=== PATIENT | male | born 1945 | race Caucasian/White ===

== ENCOUNTER 2016-05-29 03:30 | Emergency (ER) | payer MEDICARE, BC ==
--- NOTE | 2016-05-29 03:50 | EDM.PDOC ---
ED HISTORY OF PRESENT ILLNESS - General Chief Complaint: Respiratory Problem Stated Complaint: POSS. PNEMONIA Time Seen by Provider: 05/29/16 03:50 Source of Information: Reports: Patient - History of Present Illness INITIAL COMMENTS - FREE TEXT/NARRATIVE: ough and SOB since yesterday. hx pneumonias in past and feels same. No fevers. Timing/Duration: Reports: Day(s): Severity: moderate Location, General: Reports: chest Quality: Denies: Ache, Pressure Associated Symptoms (General): Reports: cough, cough w sputum (yesterday yellow) - Related Data Allergies/ADRs: Allergies Allergy/AdvReac Type Severity Reaction Status Date / Time ibuprofen [From Advil] AdvReac Mild Nausea and Verified 05/29/16 03:37 Vomiting Home Meds: Home Meds Carvedilol 25 mg PO BID 05/09/13 [History] Lisinopril [Prinivil] 40 mg PO DAILY 05/09/13 [History] Simvastatin [Zocor] 80 mg PO DAILY 05/09/13 [History] Spironolactone [Aldactone] 100 mg PO DAILY 05/09/13 [History] Warfarin Sodium 5 mg PO DAILY 05/09/13 [History] Past Medical History HEENT History: Reports: None Cardiovascular History: Reports: Hypertension, Stents Respiratory History: Reports: None Gastrointestinal History: Reports: None Genitourinary History: Reports: None Musculoskeletal History: Reports: None Neurological History: Reports: None Psychiatric History: Reports: None Endocrine/Metabolic History: Reports: None Hematologic History: Reports: None Immunologic History: Reports: None Oncologic (Cancer) History: Reports: None Dermatologic History: Reports: None Social & Family History - Tobacco Use Smoking Status *Q: Never Smoker Second Hand Smoke Exposure: No - Caffeine Use Caffeine Use: Reports: Soda - Alcohol Use Days Per Week of Alcohol Use: 0 - Recreational Drug Use Recreational Drug Use: No Course - Vital Signs Last Recorded V/S: Last Vital Signs Temp 96.0 F 05/29/16 03:39 Pulse 78 05/29/16 03:39 Resp 18 05/29/16 03:39 BP 131/88 05/29/16 03:39 Pulse Ox 95 05/29/16 03:39 - Orders/Labs/Meds Orders: Active Orders 24 hr Category Date Time Status CXR [Chest 2V] [CR] Urgent Exams 05/29/16 03:47 Ordered B-TYPE NATRIURETIC PEPTIDE,BNP [CHEM] Stat Lab 05/29/16 03:47 Ordered CBC WITH AUTO DIFF [HEME] Stat Lab 05/29/16 03:47 Ordered COMPREHENSIVE METABOLIC PN,CMP [CHEM] Stat Lab 05/29/16 03:47 Ordered D-DIMER QUANTITATIVE [COAG] Stat Lab 05/29/16 03:47 Ordered INFLUENZA A+B AG SCREEN [RM] Stat Lab 05/29/16 03:48 Ordered INR,PT,PROTHROMBIN TIME [COAG] Stat Lab 05/29/16 03:47 Ordered LACTIC ACID [CHEM] Stat Lab 05/29/16 03:47 Ordered Departure - Departure Forms: ED Department Discharge - My Orders Last 24 Hours: My Active Orders 05/29/16 03:47 CXR [Chest 2V] [CR] Urgent B-TYPE NATRIURETIC PEPTIDE,BNP [CHEM] Stat CBC WITH AUTO DIFF [HEME] Stat COMPREHENSIVE METABOLIC PN,CMP [CHEM] Stat D-DIMER QUANTITATIVE [COAG] Stat INR,PT,PROTHROMBIN TIME [COAG] Stat LACTIC ACID [CHEM] Stat 05/29/16 03:48 INFLUENZA A+B AG SCREEN [RM] Stat - Assessment/Plan Last 24 Hours: My Active Orders 05/29/16 03:47 CXR [Chest 2V] [CR] Urgent B-TYPE NATRIURETIC PEPTIDE,BNP [CHEM] Stat CBC WITH AUTO DIFF [HEME] Stat COMPREHENSIVE METABOLIC PN,CMP [CHEM] Stat D-DIMER QUANTITATIVE [COAG] Stat INR,PT,PROTHROMBIN TIME [COAG] Stat LACTIC ACID [CHEM] Stat 05/29/16 03:48 INFLUENZA A+B AG SCREEN [RM] Stat
--- NOTE | 2016-05-29 04:10 | EDM.PDOC ---
ED HISTORY OF PRESENT ILLNESS - General Chief Complaint: Respiratory Problem Stated Complaint: POSS. PNEMONIA Time Seen by Provider: 05/29/16 03:40 Source of Information: Reports: Patient History Limitations: Reports: No limitations - History of Present Illness INITIAL COMMENTS - FREE TEXT/NARRATIVE: c/o cough and SOB since yesterday. Hx pneumonia in past and feels similar. Cough productive yesterday yellow phlegm Timing/Duration: Reports: Day(s): Severity: moderate Location, General: Reports: chest Quality: Denies: Pressure Associated Symptoms (General): Reports: cough, cough w sputum. Denies: chest pain - Related Data Allergies/ADRs: Allergies Allergy/AdvReac Type Severity Reaction Status Date / Time ibuprofen [From Advil] AdvReac Mild Nausea and Verified 05/29/16 03:37 Vomiting Home Meds: Home Meds Carvedilol 25 mg PO BID 05/09/13 [History] Lisinopril [Prinivil] 40 mg PO DAILY 05/09/13 [History] Simvastatin [Zocor] 80 mg PO DAILY 05/09/13 [History] Spironolactone [Aldactone] 100 mg PO DAILY 05/09/13 [History] Warfarin Sodium 5 mg PO DAILY 05/09/13 [History] Past Medical History HEENT History: Reports: None Cardiovascular History: Reports: Hypertension, Stents Respiratory History: Reports: None Gastrointestinal History: Reports: None Genitourinary History: Reports: None Musculoskeletal History: Reports: None Neurological History: Reports: None Psychiatric History: Reports: None Endocrine/Metabolic History: Reports: None Hematologic History: Reports: None Immunologic History: Reports: None Oncologic (Cancer) History: Reports: None Dermatologic History: Reports: None Social & Family History - Tobacco Use Smoking Status *Q: Never Smoker Second Hand Smoke Exposure: No - Caffeine Use Caffeine Use: Reports: Soda - Alcohol Use Days Per Week of Alcohol Use: 0 - Recreational Drug Use Recreational Drug Use: No ED ROS GENERAL - Review of Systems Review Of Systems: See Below Constitutional: Reports: malaise. Denies: fever HEENT: Reports: No symptoms Respiratory: Reports: cough, sputum Cardiovascular: Reports: No symptoms GI/Abdominal: Reports: No symptoms : Reports: no symptoms Musculoskeletal: Reports: no symptoms Skin: Reports: no symptoms Neurological: Reports: no symptoms ED EXAM, GENERAL - Physical Exam Exam: See Below Exam Limited By: No limitations General Appearance: alert, mild distress Eye Exam: bilateral eye: EOMI, PERRL Ears: normal external exam, normal TMs Nose: normal inspection Throat/Mouth: Normal inspection, Other (hoarse voice) Head: atraumatic, normocephalic Neck: normal inspection, full range of motion. No: lymphadenopathy (L), lymphadenopathy (R) Respiratory/Chest: no respiratory distress (talkative, full sentences), wheezing (coarse right mid to base). No: respiratory distress, retractions, prolonged expiration Cardiovascular: normal peripheral pulses, regular rate, rhythm GI/Abdominal: normal bowel sounds Back Exam: normal inspection Extremities: normal inspection, normal range of motion Neurological: alert, oriented, normal cognition Psychiatric: normal affect, normal mood Skin Exam: Warm, Dry, Intact Course - Vital Signs Last Recorded V/S: Last Vital Signs Temp 96.0 F 05/29/16 03:39 Pulse 78 05/29/16 03:39 Resp 18 05/29/16 03:39 BP 131/88 05/29/16 03:39 Pulse Ox 95 05/29/16 03:39 - Orders/Labs/Meds Orders: Active Orders 24 hr Category Date Time Status RT Aerosol Therapy [RC] ASDIRECTED Care 05/29/16 04:15 Active CXR [Chest 2V] [CR] Urgent Exams 05/29/16 03:47 Taken Doxycycline [Vibramycin] Med 05/29/16 05:00 Once 100 mg PO ONETIME ONE Labs: Laboratory Tests 05/29/16 05/29/16 05/29/16 Range/Units 04:00 04:00 04:00 WBC 6.1 (5.0-10.0) 10^3/uL RBC 5.03 (4.6-6.2) 10^6/uL Hgb 14.3 (14.0-18.0) g/dL Hct 43.9 (40.0-54.0) % MCV 87.3 (80-100) fL MCH 28.4 (27.0-34.0) pg MCHC 32.6 L (33.0-35.0) g/dL Plt Count 136 L (150-450) 10^3/uL Neut % (Auto) 51.6 (42.2-75.2) % Lymph % (Auto) 33.3 (20.5-50.1) % [place] % (Auto) 12.1 H (2-8) % Eos % (Auto) 2.5 (1.0-3.0) % Baso % (Auto) 0.5 (0.0-1.0) % PT 30.9 H (9.0-12.0) SEC INR 2.9 H (0.9-1.2) D-Dimer, Quantitative < 100 (0-400) ng/mL Sodium 135 (135-145) mmol/L Potassium 4.5 (3.6-5.0) mmol/L Chloride 103 (101-111) mmol/L Carbon Dioxide 29.0 (21.0-31.0) mmol/L Anion Gap 7.5 BUN 32 H (7-18) mg/dL Creatinine 1.5 H (0.6-1.3) mg/dL Est Cr Clr Drug Dosing 48.11 mL/min Estimated GFR (MDRD) 46 BUN/Creatinine Ratio 21.33 Glucose 109 H (74-105) mg/dL Lactic Acid (0.5-2.2) mmol/L Calcium 8.5 (8.4-10.2) mg/dl Total Bilirubin 0.5 (0.2-1.0) mg/dL AST 23 (10-42) IU/L ALT 25 (10-60) IU/L Alkaline Phosphatase 75 (42-121) IU/L B-Natriuretic Peptide 44 (0-100) pg/ml Total Protein 7.4 (6.7-8.2) g/dl Albumin 4.0 (3.2-5.5) g/dl Globulin 3.4 Albumin/Globulin Ratio 1.18 /03/17 Range/Units 04:00 WBC (5.0-10.0) 10^3/uL RBC (4.6-6.2) 10^6/uL Hgb (14.0-18.0) g/dL Hct (40.0-54.0) % MCV (80-100) fL MCH (27.0-34.0) pg MCHC (33.0-35.0) g/dL Plt Count (150-450) 10^3/uL Neut % (Auto) (42.2-75.2) % Lymph % (Auto) (20.5-50.1) % [place] % (Auto) (2-8) % Eos % (Auto) (1.0-3.0) % Baso % (Auto) (0.0-1.0) % PT (9.0-12.0) SEC INR (0.9-1.2) D-Dimer, Quantitative (0-400) ng/mL Sodium (135-145) mmol/L Potassium (3.6-5.0) mmol/L Chloride (101-111) mmol/L Carbon Dioxide (21.0-31.0) mmol/L Anion Gap BUN (7-18) mg/dL Creatinine (0.6-1.3) mg/dL Est Cr Clr Drug Dosing mL/min Estimated GFR (MDRD) BUN/Creatinine Ratio Glucose (74-105) mg/dL Lactic Acid 1.0 (0.5-2.2) mmol/L Calcium (8.4-10.2) mg/dl Total Bilirubin (0.2-1.0) mg/dL AST (10-42) IU/L ALT (10-60) IU/L Alkaline Phosphatase (42-121) IU/L B-Natriuretic Peptide (0-100) pg/ml Total Protein (6.7-8.2) g/dl Albumin (3.2-5.5) g/dl Globulin Albumin/Globulin Ratio Meds: Medications Discontinued Medications Generic Name Dose Route Start Last Admin Trade Name Freq PRN Reason Stop Dose Admin Albuterol/Ipratropium 3 ml 05/29/16 04:15 05/29/16 04:20 Duoneb 3.0-0.5 Mg/3 Ml NEB 05/29/16 04:16 3 ml ONETIME ONE Administration Benzonatate 200 mg 05/29/16 04:59 Tessalon Perles PO 05/29/16 05:00 ONETIME ONE Prednisone 20 mg 05/29/16 04:59 Prednisone PO 05/29/16 05:00 ONETIME ONE - Radiology Interpretation Free Text/Narrative:: No pneumonia , scarring right lung base Departure - Departure Time of Disposition: 05:02 Disposition: Home, Self-Care 01 Condition: fair Clinical Impression: Acute bronchitis Instructions: Upper Respiratory Infection, Adult, [id number] Forms: ED Department Discharge Additional Instructions: tessalon pearles 200mg one three times daily for cough #12 doxycycline 100mg twice daily for one week fluids recheck clinic wednesday , sooner if difficultly breathing Robitussin per label instruction as needed to loosen secretions - My Orders Last 24 Hours: My Active Orders 05/29/16 03:47 CXR [Chest 2V] [CR] Urgent 05/29/16 04:15 RT Aerosol Therapy [RC] ASDIRECTED 05/29/16 05:00 Doxycycline [Vibramycin] 100 mg PO ONETIME ONE - Assessment/Plan Last 24 Hours: My Active Orders 05/29/16 03:47 CXR [Chest 2V] [CR] Urgent 05/29/16 04:15 RT Aerosol Therapy [RC] ASDIRECTED 05/29/16 05:00 Doxycycline [Vibramycin] 100 mg PO ONETIME ONE
[2016-05-29] MEDS ORDERED: Albuterol/Ipratropium 3.0-0.5 MG/3 ML Neb Soln NEB ONE (04:15)
[2016-05-29] MEDS ORDERED: predniSONE 20 MG Tab PO ONE (04:59)
[2016-05-29] MEDS ORDERED: Benzonatate 100 MG Cap PO ONE (04:59)
[2016-05-29] MEDS ORDERED: Doxycycline 100 MG Cap PO ONE (05:00)
[2016-05-29 05:29] VITALS: BP 130/84
== END 2016-05-29 05:17 | disposition home or self-care (01) ==
LOC: DL.ED 03:30
DX: J20.9 Acute bronchitis, unspecified (principal); I10 Essential (primary) hypertension; Z88.6 Allergy status to analgesic agent; Z79.899 Other long term (current) drug therapy
CPT/HCPCS: 36415; 71020; 80053; 83605; 83880; 85025; 85379; 85610; 87804; 94640; 99284; A9270

== ENCOUNTER 2016-08-06 00:39 | Emergency (ER) | payer MEDICARE, BC ==
[2016-08-06 00:49] VITALS: BP 154/99
[2016-08-06] MEDS ORDERED: cefTRIAXone 1 GM, Lidocaine 1% 2.1 ML IM ONE ×2 (01:00)
[2016-08-06] MEDS ORDERED: Azithromycin 250 MG Tab PO ONE (01:00)
--- NOTE | 2016-08-06 01:09 | EDM.PDOC ---
ED HPI GENERAL MEDICAL PROBLEM - General Chief Complaint: Respiratory Problem Stated Complaint: COUGH, CHEST DISCOMFORT Time Seen by Provider: 08/06/16 00:55 Source of Information: Reports: Patient History Limitations: Reports: No limitations - History of Present Illness INITIAL COMMENTS - FREE TEXT/NARRATIVE: This 71 yo male patient reported to the ED with a 2 day history of chest congestion. The patient has a history of frequent bronchitis. Onset: sudden Onset Date: 08/04/16 Duration: Day(s): (2) Location: Reports: chest Quality: Reports: Dull Severity: moderate Improves with: Reports: Cold therapy Worsens with: Reports: None Associated Symptoms: Reports: cough Treatments [employer]: Reports: Other medication(s) - Related Data Home Meds: Home Meds Carvedilol 25 mg PO BID 05/09/13 [History] Lisinopril [Prinivil] 40 mg PO DAILY 05/09/13 [History] Simvastatin [Zocor] 80 mg PO DAILY 05/09/13 [History] Spironolactone [Aldactone] 100 mg PO DAILY 05/09/13 [History] Warfarin Sodium 5 mg PO DAILY 05/09/13 [History] Past Medical History HEENT History: Reports: None Cardiovascular History: Reports: Hypertension, Stents Respiratory History: Reports: None Gastrointestinal History: Reports: None Genitourinary History: Reports: None Musculoskeletal History: Reports: None Neurological History: Reports: None Psychiatric History: Reports: None Endocrine/Metabolic History: Reports: None Hematologic History: Reports: None Immunologic History: Reports: None Oncologic (Cancer) History: Reports: None Dermatologic History: Reports: None Social & Family History - Tobacco Use Smoking Status *Q: Unknown Ever Smoked Second Hand Smoke Exposure: No - Caffeine Use Caffeine Use: Reports: None - Alcohol Use Days Per Week of Alcohol Use: 0 - Recreational Drug Use Recreational Drug Use: No ED ROS GENERAL - Review of Systems Review Of Systems: ROS reveals no pertinent complaints other than HPI. ED EXAM, GENERAL - Physical Exam Exam: See Below Exam Limited By: No limitations General Appearance: alert, WD/WN, no apparent distress Eye Exam: bilateral eye: EOMI, normal inspection, PERRL Ears: normal external exam, normal canal, hearing grossly normal, normal TMs Nose: normal inspection, normal mucosa, no blood Throat/Mouth: Normal inspection, Normal lips, Normal teeth, Normal gums, Normal oropharynx, Normal voice, No airway compromise Head: atraumatic, normocephalic Neck: normal inspection, supple, non-tender, full range of motion Respiratory/Chest: no respiratory distress, chest non-tender, rhonchi (fine in bases) Cardiovascular: normal peripheral pulses, regular rate, rhythm, no edema, no gallop, no JVD, no murmur, no rub GI/Abdominal: Normal Bowel Sounds, Soft, Non-Tender, No Organomegaly, No Distention, No Abnormal Bruit, No Mass (Male) Exam: Deferred Rectal (Males) Exam: Deferred Back Exam: normal inspection, full range of motion, NT Extremities: normal inspection, normal range of motion, non-tender, normal capillary refill, no pedal edema Neurological: alert, oriented, CN II-XII intact, normal cognition, normal gait, normal reflexes, no motor/sensory deficits Psychiatric: normal affect, normal mood Skin Exam: Warm, Dry, Intact, Normal color, No rash Lymphatic: no adenopathy Course - Vital Signs Last Recorded V/S: Last Vital Signs Temp 35.9 C 08/06/16 00:46 Pulse 78 08/06/16 00:46 Resp 20 08/06/16 00:46 BP 154/99 H 08/06/16 00:46 Pulse Ox 94 L 08/06/16 00:46 - Orders/Labs/Meds Meds: Medications Discontinued Medications Generic Name Dose Route Start Last Admin Trade Name Tammy PRN Reason Stop Dose Admin Azithromycin 500 mg 08/06/16 01:00 Zithromax PO 08/06/16 01:01 ONETIME ONE Ceftriaxone Sodium 1 gm/ 0 gm 08/06/16 01:00 Lidocaine HCl 2.1 ml IM 08/06/16 01:01 ONETIME ONE Departure - Departure Time of Disposition: 01:11 Disposition: Home, Self-Care 01 Condition: fair Clinical Impression: Bronchitis - Discharge Information Instructions: Acute Bronchitis, [id number] Forms: ED Department Discharge Care Plan Goals: The patient was advised of the examination results during the visit. The patient was given an IM injection of Rocephin and an oral dose of Azithromycin while in the ED. The patient was discharged with a script for Azithromycin (250 mg) #4 to take 1 by mouth daily and Tesalon Pearles (200 mg) #30 to take 1 by mouth 3 times per day as needed. If the patient has any additional symptoms or concerns, the patient should follow-up with his primary care facility or return to the ED.
== END 2016-08-06 01:35 | disposition home or self-care (01) ==
LOC: DL.ED 00:39
DX: J40 Bronchitis, not specified as acute or chronic (principal); I10 Essential (primary) hypertension; Z79.01 Long term (current) use of anticoagulants; Z79.899 Other long term (current) drug therapy
CPT/HCPCS: 99283; A9270; J0696

== ENCOUNTER 2016-10-18 01:21 | Emergency (ER) | payer MEDICARE, BC, MEDICAID ==
[2016-10-18 01:27] VITALS: BP 117/76
[2016-10-18] MEDS ORDERED: cefTRIAXone 1 GM, Lidocaine 1% 2.1 ML IM ONE ×2 (01:43)
--- NOTE | 2016-10-18 01:47 | EDM.PDOC ---
ED HPI GENERAL MEDICAL PROBLEM - General Chief Complaint: Respiratory Problem Stated Complaint: POSSIBLE PNEUMONIA OR BRONCHITIS Time Seen by Provider: 10/18/16 01:44 Source of Information: Reports: Patient History Limitations: Reports: No Limitations - History of Present Illness INITIAL COMMENTS - FREE TEXT/NARRATIVE: gives recurrent h/o bronchitis and this feels just like it and the only thing that work are IM rocephin + z-yung. states steroids don't and nebs don't. 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, High Cholesterol, Hypertension, Stents Respiratory History: Reports: Bronchitis, Recurrent Gastrointestinal History: Reports: None Genitourinary History: Reports: None Musculoskeletal History: Reports: None Neurological History: Reports: None Psychiatric History: Reports: None Endocrine/Metabolic History: Reports: None Hematologic History: Reports: None Immunologic History: Reports: None Oncologic (Cancer) History: Reports: None Dermatologic History: Reports: None Social & Family History - Tobacco Use Smoking Status *Q: Never Smoker Second Hand Smoke Exposure: No - Caffeine Use Caffeine Use: Reports: None - Alcohol Use Days Per Week of Alcohol Use: 0 - Recreational Drug Use Recreational Drug Use: No ED ROS GENERAL - Review of Systems Review Of Systems: ROS reveals no pertinent complaints other than HPI. ED EXAM, GENERAL - Physical Exam Exam: See Below Exam Limited By: No Limitations General Appearance: Alert, WD/WN, No Apparent Distress, Other (episodic cough spasms) Ears: Hearing Grossly Normal Throat/Mouth: Normal Voice, No Airway Compromise Head: Atraumatic Neck: Non-Tender, Full Range of Motion Respiratory/Chest: No Respiratory Distress, No Accessory Muscle Use, Rhonchi, Wheezing. No: Decreased Breath Sounds, Crackles, Rales, Retractions, Splinting Cardiovascular: Regular Rate, Rhythm GI/Abdominal: Soft, Non-Tender Neurological: Alert, Oriented, Normal Cognition, Normal Gait, No Motor/Sensory Deficits Psychiatric: Normal Affect, Normal Mood Skin Exam: Warm, Dry Lymphatic: No Adenopathy Course - Vital Signs Last Recorded V/S: Last Vital Signs Temp 36.6 C 10/18/16 01:24 Pulse 78 10/18/16 01:24 Resp 18 10/18/16 01:24 BP 117/76 10/18/16 01:24 Pulse Ox 94 L 10/18/16 01:24 - Orders/Labs/Meds Orders: Active Orders 24 hr Category Date Time Status cefTRIAXone 1 GM,Lidocaine 1% 2.1 ML Med 10/18/16 01:43 Ordered cefTRIAXone [Rocephin] 1 gm Lidocaine 1% [Xylocaine-MPF 1%] 2.1 ml IM ONETIME Medication Orders Ceftriaxone Sodium 1 gm/ (Lidocaine HCl 2.1 ml) 0 gm IM ONETIME ONE Stop: 10/18/16 01:44 Meds: Medications Generic Name Dose Route Start Last Admin Trade Name Tammy PRN Reason Stop Dose Admin Ceftriaxone Sodium 1 gm/ 0 gm 10/18/16 01:43 Lidocaine HCl 2.1 ml IM 10/18/16 01:44 ONETIME ONE Departure - Departure Time of Disposition: 01:46 Disposition: Home, Self-Care 01 Condition: Good Clinical Impression: Acute bronchitis - Discharge Information Instructions: Acute Bronchitis, [id number] Forms: ED Department Discharge Additional Instructions: 1) rest 2) drink lots of liquids 3) follow up at clinic as needed rx given; z-yung - My Orders Last 24 Hours: My Active Orders 10/18/16 01:43 cefTRIAXone 1 GM,Lidocaine 1% 2.1 ML cefTRIAXone [Rocephin] 1 gm Lidocaine 1% [ Xylocaine-MPF 1%] 2.1 ml IM ONETIME - Assessment/Plan Last 24 Hours: My Active Orders 10/18/16 01:43 cefTRIAXone 1 GM,Lidocaine 1% 2.1 ML cefTRIAXone [Rocephin] 1 gm Lidocaine 1% [ Xylocaine-MPF 1%] 2.1 ml IM ONETIME
== END 2016-10-18 02:11 | disposition home or self-care (01) ==
LOC: DL.ED 01:21
DX: J20.9 Acute bronchitis, unspecified (principal); E78.00 Pure hypercholesterolemia, unspecified; I10 Essential (primary) hypertension; Z95.5 Presence of coronary angioplasty implant and graft; Z86.718 Personal history of other venous thrombosis and embolism; Z79.899 Other long term (current) drug therapy
CPT/HCPCS: 96372; 99283; J0696

== ENCOUNTER 2016-11-12 23:19 | Emergency (ER) | payer MEDICARE, BC ==
[2016-11-12 23:24] VITALS: BP 119/75
[2016-11-12] MEDS ORDERED: cefTRIAXone 1 GM, Lidocaine 1% 2.1 ML IM ONE ×2 (23:52)
--- NOTE | 2016-11-12 23:56 | EDM.PDOC ---
ED HPI GENERAL MEDICAL PROBLEM - General Chief Complaint: Respiratory Problem Stated Complaint: CHEST Time Seen by Provider: 11/12/16 23:53 Source of Information: Reports: Patient History Limitations: Reports: No Limitations - History of Present Illness INITIAL COMMENTS - FREE TEXT/NARRATIVE: gives recurrent h/o bronchitis which always respond well to IM rocephin + PO z- yung - Related Data Allergies Allergy/AdvReac Type Severity Reaction Status Date / Time No Known Allergies Allergy Verified 11/12/16 23:24 Home Meds: Home Meds Carvedilol 25 mg PO BID 05/09/13 [History] Lisinopril [Prinivil] 40 mg PO DAILY 05/09/13 [History] Simvastatin [Zocor] 80 mg PO DAILY 05/09/13 [History] Spironolactone [Aldactone] 100 mg PO DAILY 05/09/13 [History] Warfarin Sodium 5 mg PO DAILY 05/09/13 [History] Aspirin [Halfprin] 81 mg PO BRK 11/12/16 [History] Past Medical History HEENT History: Reports: None 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, High Cholesterol, Hypertension, Stents Respiratory History: Reports: Bronchitis, Recurrent Gastrointestinal History: Reports: None Genitourinary History: Reports: None Musculoskeletal History: Reports: None Neurological History: Reports: None Psychiatric History: Reports: None Endocrine/Metabolic History: Reports: None Hematologic History: Reports: None Immunologic History: Reports: None Oncologic (Cancer) History: Reports: None Dermatologic History: Reports: None Social & Family History - Tobacco Use Smoking Status *Q: Never Smoker Second Hand Smoke Exposure: No - Caffeine Use Caffeine Use: Reports: None - Alcohol Use Days Per Week of Alcohol Use: 0 - Recreational Drug Use Recreational Drug Use: No ED ROS GENERAL - Review of Systems Review Of Systems: ROS reveals no pertinent complaints other than HPI. ED EXAM, GENERAL - Physical Exam Exam: See Below Exam Limited By: No Limitations General Appearance: Alert, WD/WN, Mild Distress, Other (episodic cough spasms) Ears: Hearing Grossly Normal Throat/Mouth: Normal Voice, No Airway Compromise Head: Atraumatic Neck: Non-Tender, Full Range of Motion Respiratory/Chest: No Respiratory Distress, No Accessory Muscle Use, Rhonchi Cardiovascular: Regular Rate, Rhythm GI/Abdominal: Soft, Non-Tender Neurological: Alert, Oriented, Normal Cognition, Normal Gait, No Motor/Sensory Deficits Psychiatric: Normal Affect, Normal Mood Skin Exam: Warm, Dry, Normal Color Lymphatic: No Adenopathy Course - Vital Signs Last Recorded V/S: Last Vital Signs Temp 36.2 C 11/12/16 23:21 Pulse 76 11/12/16 23:21 Resp 18 11/12/16 23:21 BP 119/75 11/12/16 23:21 Pulse Ox 94 L 11/12/16 23:21 - Orders/Labs/Meds Orders: Active Orders 24 hr Category Date Time Status cefTRIAXone 1 GM,Lidocaine 1% 2.1 ML Med 11/12/16 23:52 Ordered cefTRIAXone [Rocephin] 1 gm Lidocaine 1% [Xylocaine-MPF 1%] 2.1 ml IM ONETIME Medication Orders Ceftriaxone Sodium 1 gm/ (Lidocaine HCl 2.1 ml) 0 gm IM ONETIME ONE Stop: 11/12/16 23:53 Meds: Medications Generic Name Dose Route Start Last Admin Trade Name Freq PRN Reason Stop Dose Admin Ceftriaxone Sodium 1 gm/ 0 gm 11/12/16 23:52 Lidocaine HCl 2.1 ml IM 11/12/16 23:53 ONETIME ONE Departure - Departure Time of Disposition: 23:55 Disposition: Home, Self-Care 01 Condition: Good Clinical Impression: Bronchospasm, Acute bronchitis - Discharge Information Instructions: Acute Bronchitis, [id number] Forms: ED Department Discharge Additional Instructions: 1) rest 2) follow up with clinic or recheck as needed rx given; z-yung - My Orders Last 24 Hours: My Active Orders 11/12/16 23:52 cefTRIAXone 1 GM,Lidocaine 1% 2.1 ML cefTRIAXone [Rocephin] 1 gm Lidocaine 1% [ Xylocaine-MPF 1%] 2.1 ml IM ONETIME - Assessment/Plan Last 24 Hours: My Active Orders 11/12/16 23:52 cefTRIAXone 1 GM,Lidocaine 1% 2.1 ML cefTRIAXone [Rocephin] 1 gm Lidocaine 1% [ Xylocaine-MPF 1%] 2.1 ml IM ONETIME
== END 2016-11-13 00:06 | disposition home or self-care (01) ==
LOC: DL.ED 23:19
DX: J20.9 Acute bronchitis, unspecified (principal); I10 Essential (primary) hypertension; E78.00 Pure hypercholesterolemia, unspecified; Z79.01 Long term (current) use of anticoagulants; Z79.899 Other long term (current) drug therapy
CPT/HCPCS: 96372; 99283; J0696

== ENCOUNTER 2016-12-06 01:56 | Emergency (ER) | payer MEDICARE, BC ==
--- NOTE | 2016-12-06 02:17 | EDM.PDOC ---
ED HPI GENERAL MEDICAL PROBLEM - General Chief Complaint: Respiratory Problem Stated Complaint: PNEUMONIA OR BRONCHITIS? Time Seen by Provider: 12/06/16 02:05 Source of Information: Reports: Patient History Limitations: Reports: No Limitations - History of Present Illness INITIAL COMMENTS - FREE TEXT/NARRATIVE: This 71 yo male patient reports to the ED with a cough that started last night. The patient reports he just has not been feeling well since he went to bed. The patient reports he was working on a snow machine in his garage yesterday and started to feel ill. The patient took some cough medications before going to bed which helped his cough. Onset Date: 12/05/16 Duration: Constant, Getting Worse Location: Reports: Chest Quality: Reports: Ache, Dull Severity: Moderate Improves with: Reports: None Worsens with: Reports: None Context: Reports: Other Associated Symptoms: Reports: cough w sputum, Shortness of Breath Treatments INSTRUCTIONAL PARAPROFESSIONAL: Reports: Other Medication(s) - Related Data Allergies Allergy/AdvReac Type Severity Reaction Status Date / Time No Known Allergies Allergy Verified 12/06/16 02:07 Home Meds: Home Meds Carvedilol 25 mg PO BID 05/09/13 [History] Lisinopril [Prinivil] 40 mg PO DAILY 05/09/13 [History] Simvastatin [Zocor] 80 mg PO DAILY 05/09/13 [History] Spironolactone [Aldactone] 100 mg PO DAILY 05/09/13 [History] Warfarin Sodium 5 mg PO DAILY 05/09/13 [History] Aspirin [Halfprin] 81 mg PO BRK 11/12/16 [History] Past Medical History HEENT History: Reports: None 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, High Cholesterol, Hypertension, Stents Respiratory History: Reports: Bronchitis, Recurrent Gastrointestinal History: Reports: None Genitourinary History: Reports: None Musculoskeletal History: Reports: None Neurological History: Reports: None Psychiatric History: Reports: None Endocrine/Metabolic History: Reports: None Hematologic History: Reports: None Immunologic History: Reports: None Oncologic (Cancer) History: Reports: None Dermatologic History: Reports: None Social & Family History - Tobacco Use Smoking Status *Q: Never Smoker Second Hand Smoke Exposure: No - Caffeine Use Caffeine Use: Reports: Coffee, Soda - Alcohol Use Days Per Week of Alcohol Use: 0 - Recreational Drug Use Recreational Drug Use: No ED ROS GENERAL - Review of Systems Review Of Systems: ROS reveals no pertinent complaints other than HPI. ED EXAM, GENERAL - Physical Exam Exam: See Below Exam Limited By: No Limitations General Appearance: Alert, WD/WN, Moderate Distress Eye Exam: Bilateral Eye: EOMI, Normal Inspection, PERRL Ears: Normal External Exam, Normal Canal, Hearing Grossly Normal, Normal TMs Nose: Normal Inspection, Normal Mucosa, No Blood Throat/Mouth: Normal Inspection, Normal Lips, Normal Teeth, Normal Gums, Normal Oropharynx, Normal Voice, No Airway Compromise Head: Atraumatic, Normocephalic Neck: Normal Inspection, Supple, Non-Tender, Full Range of Motion Respiratory/Chest: No Respiratory Distress, Lungs Clear, Normal Breath Sounds, No Accessory Muscle Use, Chest Non-Tender Cardiovascular: Normal Peripheral Pulses, Regular Rate, Rhythm, No Edema, No Gallop, No JVD, No Murmur, No Rub GI/Abdominal: Normal Bowel Sounds, Soft, Non-Tender, No Organomegaly, No Distention, No Abnormal Bruit, No Mass (Male) Exam: Deferred Rectal (Males) Exam: Deferred Back Exam: Normal Inspection, Full Range of Motion, NT Extremities: Normal Inspection, Normal Range of Motion, Non-Tender, Normal Capillary Refill, No Pedal Edema Neurological: Alert, Oriented, CN II-XII Intact, Normal Cognition, Normal Gait, Normal Reflexes, No Motor/Sensory Deficits Psychiatric: Normal Affect, Normal Mood Skin Exam: Warm, Dry, Intact, Normal Color, No Rash Lymphatic: No Adenopathy Course - Vital Signs Last Recorded V/S: Last Vital Signs Temp 36.0 C 12/06/16 02:00 Pulse 70 12/06/16 02:00 Resp 18 12/06/16 02:00 BP 135/81 12/06/16 02:00 Pulse Ox 97 12/06/16 02:00 - Orders/Labs/Meds Orders: Active Orders 24 hr Category Date Time Status Chest 2V [CR] Urgent Exams 12/06/16 02:09 Ordered COMPREHENSIVE METABOLIC PN,CMP [CHEM] Urgent Lab 12/06/16 02:09 Ordered CULTURE BLOOD [BC] Stat Lab 12/06/16 02:10 Ordered LACTIC ACID [CHEM] Stat Lab 12/06/16 02:09 Ordered Labs: Laboratory Tests 12/06/16 Range/Units 02:30 WBC 8.4 (5.0-10.0) 10^3/uL RBC 4.80 (4.6-6.2) 10^6/uL Hgb 14.2 (14.0-18.0) g/dL Hct 43.8 (40.0-54.0) % MCV 91.3 (80-100) fL MCH 29.6 (27.0-34.0) pg MCHC 32.4 L (33.0-35.0) g/dL Plt Count 138 L (150-450) 10^3/uL Neut % (Auto) 50.4 (42.2-75.2) % Lymph % (Auto) 35.4 (20.5-50.1) % [place] % (Auto) 11.6 H (2-8) % Eos % (Auto) 2.2 (1.0-3.0) % Baso % (Auto) 0.4 (0.0-1.0) % Meds: Medications Discontinued Medications Generic Name Dose Route Start Last Admin Trade Name Wallyq PRN Reason Stop Dose Admin Ceftriaxone Sodium 1 gm/ 0 gm 12/06/16 02:50 Lidocaine HCl 2.1 ml IM 12/06/16 02:51 ONETIME ONE Departure - Departure Time of Disposition: 02:51 Disposition: Home, Self-Care 01 Condition: Fair Clinical Impression: Acute bronchitis - Discharge Information Instructions: Acute Bronchitis, [id number] Forms: ED Department Discharge Care Plan Goals: The patient was advised of the examination, lab and x-ray results during the visit. The patient was given an injection of Rocephin while in the ED and discharged with a script for Azithromycin (250 mg) #6 to take 2 by mouth on day 1 and 1 by mouth on days 2-5. If the patient has any additional symptoms or concerns, the patient should follow-up with his primary care facility or return to the emergency department. - My Orders Last 24 Hours: My Active Orders 12/06/16 02:09 Chest 2V [CR] Urgent COMPREHENSIVE METABOLIC PN,CMP [CHEM] Urgent LACTIC ACID [CHEM] Stat 12/06/16 02:10 CULTURE BLOOD [BC] Stat - Assessment/Plan Last 24 Hours: My Active Orders 12/06/16 02:09 Chest 2V [CR] Urgent COMPREHENSIVE METABOLIC PN,CMP [CHEM] Urgent LACTIC ACID [CHEM] Stat 12/06/16 02:10 CULTURE BLOOD [BC] Stat
[2016-12-06] MEDS ORDERED: cefTRIAXone 1 GM, Lidocaine 1% 2.1 ML IM ONE ×2 (02:50)
[2016-12-06 03:36] VITALS: BP 130/80
== END 2016-12-06 03:28 | disposition home or self-care (01) ==
LOC: DL.ED 01:56
DX: J20.9 Acute bronchitis, unspecified (principal); I10 Essential (primary) hypertension; E78.00 Pure hypercholesterolemia, unspecified; Z86.718 Personal history of other venous thrombosis and embolism; Z79.82 Long term (current) use of aspirin; Z79.899 Other long term (current) drug therapy; Z79.01 Long term (current) use of anticoagulants
CPT/HCPCS: 36415; 71020; 80053; 83605; 85025; 87040; 96372; 99284; J0696; 99283

== ENCOUNTER 2016-12-19 02:32 | Emergency (ER) | payer MEDICARE, BC ==
[2016-12-19 02:43] VITALS: BP 136/82
[2016-12-19] MEDS ORDERED: cefTRIAXone 1 GM, Lidocaine 1% 2.1 ML IM ONE ×2 (02:48)
--- NOTE | 2016-12-19 02:53 | EDM.PDOC ---
ED HPI GENERAL MEDICAL PROBLEM - General Chief Complaint: Respiratory Problem Stated Complaint: COUGH Time Seen by Provider: 12/19/16 02:50 Source of Information: Reports: Patient History Limitations: Reports: No Limitations - History of Present Illness INITIAL COMMENTS - FREE TEXT/NARRATIVE: long h/o COPD gets occasional exac' which responds well to IM rocephin & z-yung - Related Data Allergies Allergy/AdvReac Type Severity Reaction Status Date / Time No Known Allergies Allergy Verified 12/19/16 02:43 Home Meds: Home Meds Carvedilol 25 mg PO BID 05/09/13 [History] Lisinopril [Prinivil] 40 mg PO DAILY 05/09/13 [History] Simvastatin [Zocor] 80 mg PO DAILY 05/09/13 [History] Spironolactone [Aldactone] 100 mg PO DAILY 05/09/13 [History] Warfarin Sodium 5 mg PO DAILY 05/09/13 [History] Aspirin [Halfprin] 81 mg PO BRK 11/12/16 [History] Past Medical History HEENT History: Reports: None 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, High Cholesterol, Hypertension, Stents Respiratory History: Reports: Bronchitis, Recurrent Gastrointestinal History: Reports: None Genitourinary History: Reports: None Musculoskeletal History: Reports: None Neurological History: Reports: None Psychiatric History: Reports: None Endocrine/Metabolic History: Reports: None Hematologic History: Reports: None Immunologic History: Reports: None Oncologic (Cancer) History: Reports: None Dermatologic History: Reports: None Social & Family History - Tobacco Use Smoking Status *Q: Never Smoker Second Hand Smoke Exposure: No - Caffeine Use Caffeine Use: Reports: Coffee, Soda - Alcohol Use Days Per Week of Alcohol Use: 0 - Recreational Drug Use Recreational Drug Use: No ED ROS GENERAL - Review of Systems Review Of Systems: ROS reveals no pertinent complaints other than HPI. ED EXAM, GENERAL - Physical Exam Exam: See Below Exam Limited By: No Limitations General Appearance: Alert, WD/WN, No Apparent Distress Ears: Hearing Grossly Normal Throat/Mouth: Normal Voice, No Airway Compromise Head: Atraumatic Neck: Non-Tender, Full Range of Motion Respiratory/Chest: No Respiratory Distress, No Accessory Muscle Use, Rales, Rhonchi. No: Decreased Breath Sounds, Retractions, Splinting, Prolonged Expiration Cardiovascular: Regular Rate, Rhythm GI/Abdominal: Soft, Non-Tender Neurological: Alert, Oriented, Normal Cognition, Normal Gait, No Motor/Sensory Deficits Psychiatric: Normal Affect, Normal Mood Skin Exam: Warm, Dry, Normal Color Lymphatic: No Adenopathy Course - Vital Signs Last Recorded V/S: Last Vital Signs Temp 36.4 C 12/19/16 02:34 Pulse 65 12/19/16 02:34 Resp 20 12/19/16 02:34 BP 136/82 12/19/16 02:34 Pulse Ox 98 12/19/16 02:34 - Orders/Labs/Meds Meds: Medications Discontinued Medications Generic Name Dose Route Start Last Admin Trade Name Freq PRN Reason Stop Dose Admin Ceftriaxone Sodium 1 gm/ 0 gm 12/19/16 02:48 Lidocaine HCl 2.1 ml IM 12/19/16 02:49 ONETIME ONE Departure - Departure Time of Disposition: 02:52 Disposition: Home, Self-Care 01 Condition: Good Clinical Impression: Acute bronchitis - Discharge Information Instructions: Upper Respiratory Infection, Adult, [id number] Additional Instructions: 1) rest 2) avoid the cold 3) drink lots of liquids 4) recheck as needed rx given; z-yung
== END 2016-12-19 03:13 | disposition home or self-care (01) ==
LOC: DL.ED 02:32
DX: J20.9 Acute bronchitis, unspecified (principal); I10 Essential (primary) hypertension; E78.00 Pure hypercholesterolemia, unspecified; Z95.5 Presence of coronary angioplasty implant and graft; Z86.718 Personal history of other venous thrombosis and embolism; Z79.82 Long term (current) use of aspirin; Z79.01 Long term (current) use of anticoagulants; Z79.899 Other long term (current) drug therapy
CPT/HCPCS: 96372; 99283; J0696

== ENCOUNTER 2016-12-28 01:03 | Emergency (ER) | payer MEDICARE, BC ==
[2016-12-28 01:29] VITALS: BP 129/80
[2016-12-28] MEDS ORDERED: cefTRIAXone 1 GM, Lidocaine 1% 2.1 ML IM ONE ×2 (01:40)
--- NOTE | 2016-12-28 01:52 | EDM.PDOC ---
ED HPI GENERAL MEDICAL PROBLEM - General Chief Complaint: Respiratory Problem Stated Complaint: BRONCHITIS Time Seen by Provider: 12/28/16 01:35 Source of Information: Reports: Patient History Limitations: Reports: No Limitations - History of Present Illness INITIAL COMMENTS - FREE TEXT/NARRATIVE: C/O recurrent bronchitis and only thing that ever helps is a shot. Has felt SOB and had frequent cough over past 24 hours. Treatments PERMIT TECHNICIAN: Reports: Other (see below) Other Treatments PERMIT TECHNICIAN: none - Related Data Allergies Allergy/AdvReac Type Severity Reaction Status Date / Time No Known Allergies Allergy Verified 12/28/16 01:29 Home Meds: Home Meds Carvedilol 25 mg PO BID 05/09/13 [History] Lisinopril [Prinivil] 40 mg PO DAILY 05/09/13 [History] Simvastatin [Zocor] 80 mg PO DAILY 05/09/13 [History] Spironolactone [Aldactone] 100 mg PO DAILY 05/09/13 [History] Warfarin Sodium 5 mg PO DAILY 05/09/13 [History] Aspirin [Halfprin] 81 mg PO BRK 11/12/16 [History] Past Medical History HEENT History: Reports: Impaired Vision Other HEENT History: wears corrective lenses 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, High Cholesterol, Hypertension, Stents Respiratory History: Reports: Bronchitis, Recurrent Gastrointestinal History: Reports: None Genitourinary History: Reports: None Musculoskeletal History: Reports: None Neurological History: Reports: None Psychiatric History: Reports: None Endocrine/Metabolic History: Reports: None Hematologic History: Reports: None Immunologic History: Reports: None Oncologic (Cancer) History: Reports: None Dermatologic History: Reports: None - Past Surgical History HEENT Surgical History: Reports: None Social & Family History - Family History Family Medical History: Noncontributory - Tobacco Use Smoking Status *Q: Never Smoker Second Hand Smoke Exposure: No - Caffeine Use Caffeine Use: Reports: None - Alcohol Use Days Per Week of Alcohol Use: 0 - Recreational Drug Use Recreational Drug Use: No ED ROS GENERAL - Review of Systems Review Of Systems: See Below Constitutional: Denies: Fever, Chills HEENT: Reports: No Symptoms Respiratory: Reports: Shortness of Breath, Cough Cardiovascular: Reports: No Symptoms GI/Abdominal: Reports: No Symptoms : Reports: No Symptoms Musculoskeletal: Reports: No Symptoms Neurological: Reports: No Symptoms ED EXAM, GENERAL - Physical Exam Exam: See Below Exam Limited By: No Limitations General Appearance: Alert, Mild Distress Eye Exam: Bilateral Eye: EOMI, PERRL Ears: Normal External Exam, Normal TMs Nose: Normal Inspection Throat/Mouth: Normal Inspection Head: Atraumatic, Normocephalic Neck: Normal Inspection Respiratory/Chest: Decreased Breath Sounds, Other (frequent dry harsh cough) Cardiovascular: Normal Peripheral Pulses, Regular Rate, Rhythm GI/Abdominal: Normal Bowel Sounds, Soft Back Exam: Normal Inspection Extremities: Normal Inspection, Pedal Edema Neurological: Alert, Oriented, Normal Cognition, Normal Gait Psychiatric: Normal Affect Course - Vital Signs Last Recorded V/S: Last Vital Signs Temp 96.7 F 12/28/16 01:27 Pulse 69 12/28/16 01:27 Resp 20 12/28/16 01:27 BP 129/80 12/28/16 01:27 Pulse Ox 95 12/28/16 01:27 - Orders/Labs/Meds Meds: Medications Discontinued Medications Generic Name Dose Route Start Last Admin Trade Name Tammy PRN Reason Stop Dose Admin Ceftriaxone Sodium 1 gm/ 0 gm 12/28/16 01:40 12/28/16 01:58 Lidocaine HCl 2.1 ml IM 12/28/16 01:41 2.1 inj ONETIME ONE Administration - Radiology Interpretation Free Text/Narrative:: CXR- COPD scarring Departure - Departure Time of Disposition: 01:50 Disposition: Home, Self-Care 01 Condition: Good Clinical Impression: Bronchitis - Discharge Information Instructions: Chronic Obstructive Pulmonary Disease Exacerbation, [id number] Referrals: Gely Bright PA [Primary Care Provider] - Forms: ED Department Discharge Additional Instructions: follow up in clinic in am
== END 2016-12-28 02:13 | disposition home or self-care (01) ==
LOC: DL.ED 01:03
DX: J40 Bronchitis, not specified as acute or chronic (principal); I10 Essential (primary) hypertension; E78.00 Pure hypercholesterolemia, unspecified; Z79.01 Long term (current) use of anticoagulants; Z79.82 Long term (current) use of aspirin; Z79.899 Other long term (current) drug therapy; Z86.718 Personal history of other venous thrombosis and embolism; Z95.5 Presence of coronary angioplasty implant and graft
CPT/HCPCS: 71020; 96372; 99284; J0696; 99283

== ENCOUNTER 2017-01-10 | Emergency (ER) | payer MEDICARE, BC ==
[2017-01-10] MEDS ORDERED: cefTRIAXone 1 GM, Lidocaine 1% 2.1 ML IM ONE ×2 (00:16)
[2017-01-10 00:19] VITALS: BP 126/83
--- NOTE | 2017-01-10 00:19 | EDM.PDOC ---
ED HPI GENERAL MEDICAL PROBLEM - General Chief Complaint: Respiratory Problem Stated Complaint: CHEST CONGESTION Time Seen by Provider: 01/10/17 00:16 Source of Information: Reports: Patient History Limitations: Reports: No Limitations - History of Present Illness INITIAL COMMENTS - FREE TEXT/NARRATIVE: gives recurrent h/o URI that respond well to IM roceph + z-yung. - Related Data Allergies Allergy/AdvReac Type Severity Reaction Status Date / Time No Known Allergies Allergy Verified 12/28/16 01:29 Home Meds: Home Meds Carvedilol 25 mg PO BID 05/09/13 [History] Lisinopril [Prinivil] 40 mg PO DAILY 05/09/13 [History] Simvastatin [Zocor] 80 mg PO DAILY 05/09/13 [History] Spironolactone [Aldactone] 100 mg PO DAILY 05/09/13 [History] Warfarin Sodium 5 mg PO DAILY 05/09/13 [History] Aspirin [Halfprin] 81 mg PO BRK 11/12/16 [History] Past Medical History HEENT History: Reports: Impaired Vision Other HEENT History: wears corrective lenses 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, High Cholesterol, Hypertension, Stents Respiratory History: Reports: Bronchitis, Recurrent Gastrointestinal History: Reports: None Genitourinary History: Reports: None Musculoskeletal History: Reports: None Neurological History: Reports: None Psychiatric History: Reports: None Endocrine/Metabolic History: Reports: None Hematologic History: Reports: None Immunologic History: Reports: None Oncologic (Cancer) History: Reports: None Dermatologic History: Reports: None - Past Surgical History HEENT Surgical History: Reports: None Social & Family History - Family History Family Medical History: Noncontributory - Tobacco Use Smoking Status *Q: Never Smoker Second Hand Smoke Exposure: No - Caffeine Use Caffeine Use: Reports: None - Alcohol Use Days Per Week of Alcohol Use: 0 - Recreational Drug Use Recreational Drug Use: No ED ROS GENERAL - Review of Systems Review Of Systems: ROS reveals no pertinent complaints other than HPI. ED EXAM, GENERAL - Physical Exam Exam: See Below Exam Limited By: No Limitations General Appearance: Alert, WD/WN, Mild Distress, Other (general discomfort) Ears: Hearing Grossly Normal Throat/Mouth: Normal Voice, No Airway Compromise Head: Atraumatic Neck: Non-Tender, Full Range of Motion Respiratory/Chest: No Respiratory Distress, No Accessory Muscle Use, Rhonchi. No: Decreased Breath Sounds Cardiovascular: Regular Rate, Rhythm GI/Abdominal: Soft, Non-Tender Neurological: Alert, Oriented, Normal Cognition, Normal Gait, No Motor/Sensory Deficits Psychiatric: Normal Affect, Normal Mood Skin Exam: Warm, Dry, Normal Color Lymphatic: No Adenopathy Course - Vital Signs Last Recorded V/S: Last Vital Signs Temp 36.3 C 01/10/17 00:14 Pulse 72 01/10/17 00:14 Resp 18 01/10/17 00:14 BP 126/83 01/10/17 00:18 Pulse Ox 95 01/10/17 00:14 - Orders/Labs/Meds Meds: Medications Discontinued Medications Generic Name Dose Route Start Last Admin Trade Name Freq PRN Reason Stop Dose Admin Ceftriaxone Sodium 1 gm/ 0 gm 01/10/17 00:16 01/10/17 00:30 Lidocaine HCl 2.1 ml IM 01/10/17 00:17 1 inj ONETIME ONE Administration Departure - Departure Time of Disposition: 00:45 Disposition: Home, Self-Care 01 Condition: Good Clinical Impression: Acute bronchitis - Discharge Information Instructions: Acute Bronchitis, [id number] Forms: ED Department Discharge Additional Instructions: 1) rest as much as possible 2) drink lots of liquids 3) follow up at clinic or recheck as needed rx given; z-yung
== END 2017-01-10 00:45 | disposition home or self-care (01) ==
LOC: DL.ED
DX: J20.9 Acute bronchitis, unspecified (principal); E78.00 Pure hypercholesterolemia, unspecified; I10 Essential (primary) hypertension; Z79.01 Long term (current) use of anticoagulants; Z79.899 Other long term (current) drug therapy
CPT/HCPCS: 96372; 99284; J0696; 99283

== ENCOUNTER 2017-01-16 22:30 | Emergency (ER) | payer MEDICARE, BC ==
[2017-01-16 22:38] VITALS: BP 123/67
--- NOTE | 2017-01-16 22:44 | EDM.PDOC ---
ED HPI GENERAL MEDICAL PROBLEM - General Chief Complaint: Lower Extremity Injury/Pain Stated Complaint: INFECTION ON LEG, SMALL BLISTERS Time Seen by Provider: 01/16/17 22:37 Source of Information: Reports: Patient History Limitations: Reports: No Limitations - History of Present Illness INITIAL COMMENTS - FREE TEXT/NARRATIVE: states had these blisters on his leg for many years, today they look infected and placed bandage on it. 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) - Related Data Allergies Allergy/AdvReac Type Severity Reaction Status Date / Time No Known Allergies Allergy Verified 12/28/16 01:29 Home Meds: Home Meds Carvedilol 25 mg PO BID 05/09/13 [History] Lisinopril [Prinivil] 40 mg PO DAILY 05/09/13 [History] Simvastatin [Zocor] 80 mg PO DAILY 05/09/13 [History] Spironolactone [Aldactone] 100 mg PO DAILY 05/09/13 [History] Warfarin Sodium 5 mg PO DAILY 05/09/13 [History] Aspirin [Halfprin] 81 mg PO BRK 11/12/16 [History] Past Medical History HEENT History: Reports: Impaired Vision Other HEENT History: wears corrective lenses 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, High Cholesterol, Hypertension, Stents Respiratory History: Reports: Bronchitis, Recurrent Gastrointestinal History: Reports: None Genitourinary History: Reports: None Musculoskeletal History: Reports: None Neurological History: Reports: None Psychiatric History: Reports: None Endocrine/Metabolic History: Reports: None Hematologic History: Reports: None Immunologic History: Reports: None Oncologic (Cancer) History: Reports: None Dermatologic History: Reports: None - Past Surgical History HEENT Surgical History: Reports: None Social & Family History - Family History Family Medical History: Noncontributory - Tobacco Use Smoking Status *Q: Never Smoker Second Hand Smoke Exposure: No - Caffeine Use Caffeine Use: Reports: None - Alcohol Use Days Per Week of Alcohol Use: 0 - Recreational Drug Use Recreational Drug Use: No Review of Systems - Review of Systems Review Of Systems: ROS reveals no pertinent complaints other than HPI. ED EXAM, GENERAL - Physical Exam Exam: See Below Exam Limited By: No Limitations General Appearance: Alert, WD/WN, No Apparent Distress Ears: Hearing Grossly Normal Throat/Mouth: Normal Voice, No Airway Compromise Head: Atraumatic Neck: Non-Tender, Full Range of Motion Respiratory/Chest: No Respiratory Distress Cardiovascular: Regular Rate, Rhythm GI/Abdominal: Soft, Non-Tender Extremities: Other (right lower anterior leg with small crop of blisters without exudate. no lymphagitis, NV wnl.) Neurological: Alert, Oriented, Normal Cognition, Normal Gait, No Motor/Sensory Deficits Psychiatric: Normal Affect, Normal Mood Skin Exam: Warm, Dry, Normal Color Lymphatic: No Adenopathy Course - Vital Signs Last Recorded V/S: Last Vital Signs Temp 36.2 C 01/16/17 22:36 Pulse 75 01/16/17 22:36 Resp 24 H 01/16/17 22:36 BP 123/67 01/16/17 22:36 Pulse Ox 95 01/16/17 22:36 - Orders/Labs/Meds Orders: Active Orders 24 hr Category Date Time Status CULTURE WOUND [RM] Stat Lab 01/16/17 23:01 Ordered Meds: Medications Discontinued Medications Generic Name Dose Route Start Last Admin Trade Name Freq PRN Reason Stop Dose Admin Clindamycin HCl 150 mg 01/16/17 23:02 Cleocin PO 01/16/17 23:03 ONETIME ONE Departure - Departure Time of Disposition: 23:05 Disposition: Home, Self-Care 01 Condition: Good Clinical Impression: Infected blister of right leg Qualifiers: Encounter type: initial encounter Qualified Code(s): S80.821A - Blister ( nonthermal), right lower leg, initial encounter; L08.9 - Local infection of the skin and subcutaneous tissue, unspecified; L08.9 - Local infection of the skin and subcutaneous tissue, unspecified - Discharge Information Instructions: Wound Infection, [id number] Forms: ED Department Discharge Additional Instructions: 1) elevate leg as much as possible next 48 hours 2) keep wound clean dry covered 3) must return if looks worse 4) see clinic or family doctor for culture result on Wednesday rx given; clindamycin 150mg qid x 40 - My Orders Last 24 Hours: My Active Orders 01/16/17 23:01 CULTURE WOUND [RM] Stat - Assessment/Plan Last 24 Hours: My Active Orders 01/16/17 23:01 CULTURE WOUND [RM] Stat
[2017-01-16] MEDS ORDERED: Clindamycin HCl 150 MG Cap PO ONE (23:02)
== END 2017-01-16 23:12 | disposition home or self-care (01) ==
LOC: DL.ED 22:30
DX: S80.821A Blister (nonthermal), right lower leg, initial encounter (principal); L08.9 Local infection of the skin and subcutaneous tissue, unspecified; Z79.82 Long term (current) use of aspirin; Z79.01 Long term (current) use of anticoagulants; Z79.899 Other long term (current) drug therapy; X58.XXXA Exposure to other specified factors, initial encounter
CPT/HCPCS: 87070; 99283; A9270; 87077; 87186

== ENCOUNTER 2017-01-18 05:33 | Emergency (ER) | payer MEDICARE, BC ==
[2017-01-18] MEDS ORDERED: Nitroglycerin 0.4 MG Tab.SL SL ONE (05:52)
--- NOTE | 2017-01-18 05:54 | EDM.PDOC ---
ED HPI GENERAL MEDICAL PROBLEM - General Chief Complaint: General Stated Complaint: HARD TIME BREATHING Time Seen by Provider: 01/18/17 05:50 Source of Information: Reports: Patient History Limitations: Reports: No Limitations - History of Present Illness INITIAL COMMENTS - FREE TEXT/NARRATIVE: woke up from sleep with chest heaviness and hard to breath. had stent by Dr Miller 6 years ago. Middle Chest Pain Score (Numeric/FACES): 9 - Related Data Allergies Allergy/AdvReac Type Severity Reaction Status Date / Time No Known Allergies Allergy Verified 01/18/17 05:37 Home Meds: Home Meds Carvedilol 25 mg PO BID 05/09/13 [History] Lisinopril [Prinivil] 40 mg PO DAILY 05/09/13 [History] Simvastatin [Zocor] 80 mg PO DAILY 05/09/13 [History] Spironolactone [Aldactone] 100 mg PO DAILY 05/09/13 [History] Warfarin Sodium 5 mg PO DAILY 05/09/13 [History] Aspirin [Halfprin] 81 mg PO BRK 11/12/16 [History] Past Medical History HEENT History: Reports: Impaired Vision Other HEENT History: wears corrective lenses 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, High Cholesterol, Hypertension, Stents Respiratory History: Reports: Bronchitis, Recurrent Gastrointestinal History: Reports: None Genitourinary History: Reports: None Musculoskeletal History: Reports: None Neurological History: Reports: None Psychiatric History: Reports: None Endocrine/Metabolic History: Reports: None Hematologic History: Reports: None Immunologic History: Reports: None Oncologic (Cancer) History: Reports: None Dermatologic History: Reports: None - Past Surgical History HEENT Surgical History: Reports: None Social & Family History - Family History Family Medical History: Noncontributory - Tobacco Use Smoking Status *Q: Never Smoker Second Hand Smoke Exposure: No - Caffeine Use Caffeine Use: Reports: None - Alcohol Use Days Per Week of Alcohol Use: 0 - Recreational Drug Use Recreational Drug Use: No ED ROS GENERAL - Review of Systems Review Of Systems: ROS reveals no pertinent complaints other than HPI. ED EXAM, GENERAL - Physical Exam Exam: See Below Exam Limited By: No Limitations General Appearance: Alert, WD/WN, Mild Distress, Other (discomfort) Ears: Hearing Grossly Normal Throat/Mouth: Normal Voice, No Airway Compromise Head: Atraumatic Neck: Non-Tender, Full Range of Motion Respiratory/Chest: No Respiratory Distress, Lungs Clear Cardiovascular: Regular Rate, Rhythm GI/Abdominal: Soft, Non-Tender Neurological: Alert, Oriented, Normal Cognition, Normal Gait, No Motor/Sensory Deficits Psychiatric: Flat Affect Skin Exam: Warm, Dry, Normal Color Lymphatic: No Adenopathy Course - Vital Signs Last Recorded V/S: Last Vital Signs Temp 36.3 C 01/18/17 05:37 Pulse 70 01/18/17 06:39 Resp 18 01/18/17 06:39 BP 129/94 H 01/18/17 06:39 Pulse Ox 97 01/18/17 06:39 - Orders/Labs/Meds Orders: Active Orders 24 hr Category Date Time Status EKG 12 Lead [EKG Documentation Completion] [RC] STAT Care 01/18/17 05:41 Active Chest 1V Frontal [CR] Urgent Exams 01/18/17 06:33 Taken Labs: Laboratory Tests 01/18/17 01/18/17 01/18/17 Range/Units 05:49 05:49 05:49 WBC 7.4 (5.0-10.0) 10^3/uL RBC 4.84 (4.6-6.2) 10^6/uL Hgb 14.4 (14.0-18.0) g/dL Hct 44.0 (40.0-54.0) % MCV 90.9 (80-100) fL MCH 29.8 (27.0-34.0) pg MCHC 32.7 L (33.0-35.0) g/dL Plt Count 140 L (150-450) 10^3/uL Neut % (Auto) 54.9 (42.2-75.2) % Lymph % (Auto) 30.4 (20.5-50.1) % [place] % (Auto) 11.8 H (2-8) % Eos % (Auto) 2.6 (1.0-3.0) % Baso % (Auto) 0.3 (0.0-1.0) % D-Dimer, Quantitative 216 (0-400) ng/mL Sodium 137 (135-145) mmol/L Potassium 4.2 (3.6-5.0) mmol/L Chloride 102 (101-111) mmol/L Carbon Dioxide 26.0 (21.0-31.0) mmol/L Anion Gap 13.2 BUN 34 H (7-18) mg/dL Creatinine 1.5 H (0.6-1.3) mg/dL Est Cr Clr Drug Dosing 48.11 mL/min Estimated GFR (MDRD) 46 BUN/Creatinine Ratio 22.66 Glucose 106 H (74-105) mg/dL Calcium 8.6 (8.4-10.2) mg/dl Total Bilirubin 0.5 (0.2-1.0) mg/dL AST 23 (10-42) IU/L ALT 24 (10-60) IU/L Alkaline Phosphatase 65 (42-121) IU/L Troponin I < 0.02 (0.00-0.02) ng/ml B-Natriuretic Peptide 45 (0-100) pg/ml Total Protein 7.1 (6.7-8.2) g/dl Albumin 4.0 (3.2-5.5) g/dl Globulin 3.1 Albumin/Globulin Ratio 1.29 Meds: Medications Discontinued Medications Generic Name Dose Route Start Last Admin Trade Name Tammy PRN Reason Stop Dose Admin Nitroglycerin 0.4 mg 01/18/17 05:52 Nitrostat SL 01/18/17 05:53 ONETIME ONE - Re-Assessments/Exams Free Text/Narrative Re-Assessment/Exam: 01/18/17 06:25 re-exam; states feels better now, easier to breath and heaviness much better, states doesn't know what happened to him earlier with all those Sx. pt states he prefers not to have NTG since it "knocks him out" 01/18/17 06:36 re-exam; states now he feels back to normal. states he did have a dream about his who Feb 13. 01/18/17 06:49 re-exam; still feels fine without any chest discomforts. 01/18/17 06:58 re-exam; still feels fine . has [facility] appt @ 8;00am Departure - Departure Time of Disposition: 06:58 Disposition: Home, Self-Care 01 Condition: Good Clinical Impression: Reaction, situational Qualifiers: Adjustment disorder type: with mixed anxiety and depressed mood Qualified Code( s): F43.23 - Adjustment disorder with mixed anxiety and depressed mood - Discharge Information Forms: ED Department Discharge Additional Instructions: 1) keep your V.A appointment for this morning 2) return for recheck if there is any changes or concerns - My Orders Last 24 Hours: My Active Orders 01/18/17 05:41 EKG 12 Lead [EKG Documentation Completion] [RC] STAT 01/18/17 06:33 Chest 1V Frontal [CR] Urgent - Assessment/Plan Last 24 Hours: My Active Orders 01/18/17 05:41 EKG 12 Lead [EKG Documentation Completion] [RC] STAT 01/18/17 06:33 Chest 1V Frontal [CR] Urgent
[2017-01-18 06:17] LABS: CHLORIDE,CL 102 mmol/L (101-111); SODIUM,NA 137 mmol/L (135-145)
[2017-01-18 06:39] VITALS: BP 129/94
--- NOTE | 2017-01-19 10:52 | EKG ---
01/18/2017 - RUBIN PAIGE - TIME: 5:40 a.m. EKG shows normal sinus rhythm, rate is 70 per minute. [facility] /[id number]
== END 2017-01-18 07:06 | disposition home or self-care (01) ==
LOC: DL.ED 05:33
DX: F43.23 Adjustment disorder with mixed anxiety and depressed mood (principal); I10 Essential (primary) hypertension; Z79.82 Long term (current) use of aspirin; Z79.899 Other long term (current) drug therapy; Z79.01 Long term (current) use of anticoagulants
CPT/HCPCS: 36415; 71010; 80053; 83880; 84484; 85025; 85379; 93005; 93010; 99284; 99285

== ENCOUNTER 2017-04-03 00:38 | Emergency (ER) | payer MEDICARE, BC ==
[2017-04-03 00:45] VITALS: BP 136/95
--- NOTE | 2017-04-03 01:07 | EDM.PDOC ---
ED HPI GENERAL MEDICAL PROBLEM - General Chief Complaint: Skin Complaint Stated Complaint: EAR BLEEDING Time Seen by Provider: 04/03/17 00:45 Source of Information: Reports: Patient History Limitations: Reports: No Limitations - History of Present Illness INITIAL COMMENTS - FREE TEXT/NARRATIVE: C/O right ear bleeding. Reports, skin cancer removal today in [place] by Senior Risk Manager. Tonight bleeding noted from around dressing. Similar episode with previous procedure on Left ear. INR today 2.7. - Related Data Allergies Allergy/AdvReac Type Severity Reaction Status Date / Time No Known Allergies Allergy Verified 04/03/17 00:40 Home Meds: Home Meds Carvedilol 25 mg PO BID 05/09/13 [History] Lisinopril [Prinivil] 40 mg PO DAILY 05/09/13 [History] Simvastatin [Zocor] 80 mg PO DAILY 05/09/13 [History] Spironolactone [Aldactone] 100 mg PO DAILY 05/09/13 [History] Warfarin Sodium 5 mg PO DAILY 05/09/13 [History] Aspirin [Halfprin] 81 mg PO BRK 11/12/16 [History] Past Medical History HEENT History: Reports: Impaired Vision Other HEENT History: wears corrective lenses 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, High Cholesterol, Hypertension, Stents Respiratory History: Reports: Bronchitis, Recurrent Gastrointestinal History: Reports: None Genitourinary History: Reports: None Musculoskeletal History: Reports: None Neurological History: Reports: None Psychiatric History: Reports: None Endocrine/Metabolic History: Reports: None Hematologic History: Reports: None Immunologic History: Reports: None Oncologic (Cancer) History: Reports: Other (See Below) 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 ED EXAM, SKIN/RASH Exam: See Below Exam Limited By: No Limitations General Appearance: No Apparent Distress Eye Exam: Bilateral Eye: EOMI Ears: Normal External Exam (left), Other (right postior upper pinna, circular crevis , approximately 5x7mm. Slight trickle around dressing.) Throat/Mouth: Normal Lips Head: Atraumatic, Normocephalic Neck: Normal Inspection Respiratory/Chest: No Respiratory Distress Cardiovascular: Normal Peripheral Pulses Extremities: Pedal Edema Neurological: Alert, Oriented, Normal Cognition Psychiatric: Normal Affect Skin: Wound/Incision (posterior right ear) Associated features: Tenderness Course - Vital Signs Last Recorded V/S: Last Vital Signs Temp 97.6 F 04/03/17 00:42 Pulse 83 04/03/17 00:42 Resp 20 04/03/17 00:42 BP 136/95 H 04/03/17 00:42 Pulse Ox 95 04/03/17 00:42 - Re-Assessments/Exams Free Text/Narrative Re-Assessment/Exam: 04/03/17 01:07 Dressing removed. Small clot formed win wound, stable , moderate clot on dressing. No swlling or ear. Redress with pressure dressing- vaseline gauze 4x4 's and coban Departure - Departure Time of Disposition: :25 Disposition: Home, Self-Care 01 Condition: Good Clinical Impression: Postoperative hemorrhage of skin following dermatologic procedure - Discharge Information Instructions: Deep Skin Avulsion Additional Instructions: pressure dressing to ear tonight, may release pressure this morning if no further bleeding from site. Do not remove dressing, Contact provider tomorrow Follow up Wednesday with provider for dressing change and wound check Pressure to are if recurrent bleeding, if does not stop return to ER. Light activity,
== END 2017-04-03 01:21 | disposition home or self-care (01) ==
LOC: DL.ED 00:38
DX: L76.21 Postprocedural hemorrhage of skin and subcutaneous tissue following a dermatologic procedure (principal); E78.00 Pure hypercholesterolemia, unspecified; I10 Essential (primary) hypertension; Z85.828 Personal history of other malignant neoplasm of skin; Z79.82 Long term (current) use of aspirin; Z79.01 Long term (current) use of anticoagulants; Z79.899 Other long term (current) drug therapy
CPT/HCPCS: 99282

== ENCOUNTER 2017-04-03 05:10 | Emergency (ER) | payer MEDICARE, BC ==
[2017-04-03 05:17] VITALS: BP 142/84
--- NOTE | 2017-04-03 05:49 | EDM.PDOC ---
ED HPI GENERAL MEDICAL PROBLEM - General Chief Complaint: Skin Complaint Stated Complaint: EAR BLEEDING Time Seen by Provider: 04/03/17 05:20 Source of Information: Reports: Patient History Limitations: Reports: No Limitations - Related Data Allergies Allergy/AdvReac Type Severity Reaction Status Date / Time No Known Allergies Allergy Verified 04/03/17 05:13 Home Meds: Home Meds Carvedilol 25 mg PO BID 05/09/13 [History] Lisinopril [Prinivil] 40 mg PO DAILY 05/09/13 [History] Simvastatin [Zocor] 80 mg PO DAILY 05/09/13 [History] Spironolactone [Aldactone] 100 mg PO DAILY 05/09/13 [History] Warfarin Sodium 5 mg PO DAILY 05/09/13 [History] Aspirin [Halfprin] 81 mg PO BRK 11/12/16 [History] Past Medical History HEENT History: Reports: Impaired Vision Other HEENT History: wears corrective lenses 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, High Cholesterol, Hypertension, Stents Respiratory History: Reports: Bronchitis, Recurrent Gastrointestinal History: Reports: None Genitourinary History: Reports: None Musculoskeletal History: Reports: None Neurological History: Reports: None Psychiatric History: Reports: None Endocrine/Metabolic History: Reports: None Hematologic History: Reports: None Immunologic History: Reports: None Oncologic (Cancer) History: Reports: Other (See Below) 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 ED EXAM, SKIN/RASH Exam: See Below Exam Limited By: No Limitations General Appearance: Alert, No Apparent Distress Eye Exam: Bilateral Eye: EOMI Ears: Other (right posterior pinna post procedure scant bleeding lower wound bed. Prior dressing shifted. ). No: Normal External Exam Throat/Mouth: Normal Voice Head: Atraumatic, Normocephalic Neck: Normal Inspection Respiratory/Chest: No Respiratory Distress, Lungs Clear, Normal Breath Sounds Cardiovascular: Regular Rate, Rhythm Skin: Wound/Incision (right ear) Course - Vital Signs Last Recorded V/S: Last Vital Signs Temp 97.5 F 04/03/17 05:14 Pulse 87 04/03/17 05:14 Resp 18 04/03/17 05:14 BP 142/84 H 04/03/17 05:14 Pulse Ox 96 04/03/17 05:14 - Re-Assessments/Exams Free Text/Narrative Re-Assessment/Exam: 04/03/17 05:57 Post procedure wound to right ear redressed surgi-cell, 4x4 pressure dressing secured with Coban. Departure - Departure Time of Disposition: 05:41 Disposition: Home, Self-Care 01 Clinical Impression: Postoperative bleeding from incision, Chronic anticoagulation - Discharge Information Instructions: Nonsutured Laceration Care Forms: ED Department Discharge Additional Instructions: Continue pressure dressing to right ear Follow up with Senior Net Web Developer this am Dressing change in clinic on Wednesday.
== END 2017-04-03 05:46 | disposition home or self-care (01) ==
LOC: DL.ED 05:10
DX: H95.41 Postprocedural hemorrhage of ear and mastoid process following a procedure on the ear and mastoid process (principal); I10 Essential (primary) hypertension; Z79.01 Long term (current) use of anticoagulants; E78.00 Pure hypercholesterolemia, unspecified; Z79.82 Long term (current) use of aspirin; Z79.899 Other long term (current) drug therapy; L76.21 Postprocedural hemorrhage of skin and subcutaneous tissue following a dermatologic procedure; Z85.828 Personal history of other malignant neoplasm of skin
CPT/HCPCS: 99282; 99283

== ENCOUNTER 2017-09-13 05:26 | Emergency (ER) | payer MEDICARE, BC ==
[2017-09-13 05:34] VITALS: BP 139/98
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
[2017-09-13 06:18] LABS: CHLORIDE,CL 105 mmol/L (101-111); SODIUM,NA 139 mmol/L (135-145)
--- NOTE | 2017-09-14 07:16 | EKG ---
09/13/2017- RUBIN PAIGE - EKG per my reading shows sinus rhythm at a rate of 72. [facility] /[id number]
== END 2017-09-13 07:50 | disposition home or self-care (01) ==
LOC: DL.ED 05:26
DX: R07.89 Other chest pain (principal); E78.00 Pure hypercholesterolemia, unspecified; I10 Essential (primary) hypertension; Z79.899 Other long term (current) drug therapy; Z79.82 Long term (current) use of aspirin; Z79.01 Long term (current) use of anticoagulants
CPT/HCPCS: 36415; 80053; 83880; 84484; 85025; 85379; 93005; 93010; 99283; 99285

== ENCOUNTER 2017-11-20 20:06 | Emergency (ER) | payer MEDICARE, BC ==
[2017-11-20 20:19] VITALS: BP 155/93
--- NOTE | 2017-11-20 20:46 | EDM.PDOC ---
ED HPI GENERAL MEDICAL PROBLEM - General Chief Complaint: Lower Extremity Injury/Pain Stated Complaint: LEG PAIN [id number] Time Seen by Provider: 11/20/17 20:41 Source of Information: Reports: Patient History Limitations: Reports: No Limitations - History of Present Illness INITIAL COMMENTS - FREE TEXT/NARRATIVE: c/o leg swelling for long time and lasix not working well. but noticed in am his legs are much better with decrease swelling. Left Lower Leg Pain Score (Numeric/FACES): 2 - Related Data Allergies Allergy/AdvReac Type Severity Reaction Status Date / Time No Known Allergies Allergy Verified 11/20/17 20:11 Home Meds: Home Meds Carvedilol 25 mg PO BID 05/09/13 [History] Lisinopril [Prinivil] 40 mg PO DAILY 05/09/13 [History] Simvastatin [Zocor] 80 mg PO DAILY 05/09/13 [History] Spironolactone [Aldactone] 100 mg PO DAILY 05/09/13 [History] Aspirin [Halfprin] 81 mg PO BRK 11/12/16 [History] Sertraline HCl 25 mg PO DAILY 11/20/17 [History] Warfarin Sodium [Jantoven] 5 mg PO ASDIRECTED 11/20/17 [History] Past Medical History HEENT History: Reports: Impaired Vision Other HEENT History: wears corrective lenses 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, High Cholesterol, Hypertension, Stents Respiratory History: Reports: Bronchitis, Recurrent Gastrointestinal History: Reports: None Genitourinary History: Reports: None Musculoskeletal History: Reports: None Neurological History: Reports: None Psychiatric History: Reports: None Endocrine/Metabolic History: Reports: None Hematologic History: Reports: None Immunologic History: Reports: None Oncologic (Cancer) History: Reports: Other (See Below) 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 ED EXAM, GENERAL - Physical Exam Exam: See Below Exam Limited By: No Limitations General Appearance: Alert, WD/WN, No Apparent Distress Ears: Hearing Grossly Normal Throat/Mouth: Normal Voice, No Airway Compromise Head: Atraumatic Neck: Non-Tender, Full Range of Motion Respiratory/Chest: No Respiratory Distress Cardiovascular: Regular Rate, Rhythm GI/Abdominal: Soft, Non-Tender Extremities: Pedal Edema, Other (1+ bilateral edema, NV wnl, gait non ataxic) Neurological: Alert, Oriented, Normal Cognition, Normal Gait, No Motor/Sensory Deficits Psychiatric: Normal Affect, Normal Mood Skin Exam: Warm, Dry, Normal Color Lymphatic: No Adenopathy Course - Vital Signs Last Recorded V/S: Last Vital Signs Temp 37.2 C 11/20/17 20:18 Pulse 83 11/20/17 20:18 Resp 21 H 11/20/17 20:18 BP 155/93 H 11/20/17 20:18 Pulse Ox 95 11/20/17 20:18 Departure - Departure Time of Disposition: 20:45 Disposition: Home, Self-Care 01 Condition: Good Clinical Impression: Poor circulation of extremity - Discharge Information Forms: ED Department Discharge Additional Instructions: 1) elevate leg as much as practical 2) recheck if there is any change or concern
== END 2017-11-20 20:43 | disposition home or self-care (01) ==
LOC: DL.ED 20:06
DX: I73.9 Peripheral vascular disease, unspecified (principal); I10 Essential (primary) hypertension; E78.00 Pure hypercholesterolemia, unspecified; Z79.899 Other long term (current) drug therapy; Z79.82 Long term (current) use of aspirin
CPT/HCPCS: 99283

== ENCOUNTER 2017-11-22 01:26 | Emergency (ER) | payer MEDICARE, BC ==
[2017-11-22] MEDS ORDERED: cefTRIAXone 1 GM Vial IVPUSH ONE (01:37)
[2017-11-22] MEDS ORDERED: Albuterol/Ipratropium 3.0-0.5 MG/3 ML Neb Soln NEB ONE (01:37)
--- NOTE | 2017-11-22 01:40 | EDM.PDOC ---
ED HPI GENERAL MEDICAL PROBLEM - General Stated Complaint: BRONCHITIS Time Seen by Provider: 11/22/17 01:38 Source of Information: Reports: Patient History Limitations: Reports: No Limitations - History of Present Illness INITIAL COMMENTS - FREE TEXT/NARRATIVE: states the A/C frequently gives him respiratory problems. tonight feeling more congested and usually IM roceph + z-apk work. - Related Data Allergies Allergy/AdvReac Type Severity Reaction Status Date / Time No Known Allergies Allergy Verified 11/20/17 20:11 Home Meds: Home Meds Carvedilol 25 mg PO BID 05/09/13 [History] Lisinopril [Prinivil] 40 mg PO DAILY 05/09/13 [History] Simvastatin [Zocor] 80 mg PO DAILY 05/09/13 [History] Spironolactone [Aldactone] 100 mg PO DAILY 05/09/13 [History] Aspirin [Halfprin] 81 mg PO BRK 11/12/16 [History] Sertraline HCl 25 mg PO DAILY 11/20/17 [History] Warfarin Sodium [Jantoven] 5 mg PO ASDIRECTED 11/20/17 [History] Past Medical History HEENT History: Reports: Impaired Vision Other HEENT History: wears corrective lenses 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, High Cholesterol, Hypertension, Stents Respiratory History: Reports: Bronchitis, Recurrent Gastrointestinal History: Reports: None Genitourinary History: Reports: None Musculoskeletal History: Reports: None Neurological History: Reports: None Psychiatric History: Reports: None Endocrine/Metabolic History: Reports: None Hematologic History: Reports: None Immunologic History: Reports: None Oncologic (Cancer) History: Reports: Other (See Below) 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 ED EXAM, GENERAL - Physical Exam Exam: See Below Exam Limited By: No Limitations General Appearance: Alert, WD/WN, No Apparent Distress Ears: Hearing Grossly Normal Throat/Mouth: Normal Voice, No Airway Compromise Head: Atraumatic Neck: Non-Tender, Full Range of Motion Respiratory/Chest: No Accessory Muscle Use, Decreased Breath Sounds, Rhonchi, Wheezing Cardiovascular: Regular Rate, Rhythm GI/Abdominal: Soft, Non-Tender Neurological: Alert, Oriented, Normal Cognition, Normal Gait, No Motor/Sensory Deficits Psychiatric: Normal Affect, Normal Mood Skin Exam: Warm, Dry, Normal Color Lymphatic: No Adenopathy Course - Vital Signs Last Recorded V/S: Last Vital Signs Temp 36.3 C 11/22/17 01:39 Pulse 73 11/22/17 01:39 Resp 24 H 11/22/17 01:39 BP 129/101 H 11/22/17 01:39 Pulse Ox 93 L 11/22/17 01:39 - Orders/Labs/Meds Orders: Active Orders 24 hr Category Date Time Status EKG 12 Lead [EKG Documentation Completion] [RC] STAT Care 11/22/17 02:16 Active RT Aerosol Therapy [RC] ASDIRECTED Care 11/22/17 01:37 Active Chest 1V Frontal [CR] Urgent Exams 11/22/17 01:37 Taken Labs: Laboratory Tests 11/22/17 11/22/17 11/22/17 Range/Units 02:37 02:37 02:37 WBC 7.4 (5.0-10.0) 10^3/uL RBC 4.99 (4.6-6.2) 10^6/uL Hgb 14.5 (14.0-18.0) g/dL Hct 45.3 (40.0-54.0) % MCV 90.8 (80-100) fL MCH 29.1 (27.0-34.0) pg MCHC 32.0 L (33.0-35.0) g/dL Plt Count 145 L (150-450) 10^3/uL Neut % (Auto) 58.9 (42.2-75.2) % Lymph % (Auto) 28.5 (20.5-50.1) % [place] % (Auto) 10.6 H (2-8) % Eos % (Auto) 1.6 (1.0-3.0) % Baso % (Auto) 0.4 (0.0-1.0) % Sodium 139 (135-145) mmol/L Potassium 4.7 (3.6-5.0) mmol/L Chloride 104 (101-111) mmol/L Carbon Dioxide 29.0 (21.0-31.0) mmol/L Anion Gap 10.7 BUN 36 H (7-18) mg/dL Creatinine 1.6 H (0.6-1.3) mg/dL Est Cr Clr Drug Dosing 44.45 mL/min Estimated GFR (MDRD) 43 BUN/Creatinine Ratio 22.50 Glucose 109 H (74-105) mg/dL Lactic Acid 0.8 (0.5-2.2) mmol/L Calcium 9.2 (8.4-10.2) mg/dl Total Bilirubin 0.4 (0.2-1.0) mg/dL AST 22 (10-42) IU/L ALT 23 (10-60) IU/L Alkaline Phosphatase 74 (42-121) IU/L Troponin I < 0.02 (0.00-0.02) ng/ml B-Natriuretic Peptide 33 (0-100) pg/ml Total Protein 7.3 (6.7-8.2) g/dl Albumin 4.0 (3.2-5.5) g/dl Globulin 3.3 Albumin/Globulin Ratio 1.21 Meds: Medications Discontinued Medications Generic Name Dose Route Start Last Admin Trade Name Freq PRN Reason Stop Dose Admin Albuterol/Ipratropium 3 ml 11/22/17 01:37 11/22/17 01:51 Duoneb 3.0-0.5 Mg/3 Ml NEB 11/22/17 01:38 3 ml ONETIME ONE Administration Ceftriaxone Sodium 1 gm 11/22/17 01:37 11/22/17 01:55 Rocephin IVPUSH 11/22/17 01:38 1 gm ONETIME ONE Administration - Re-Assessments/Exams Free Text/Narrative Re-Assessment/Exam: 11/22/17 02:27 s/p duoneb + roceph = better and wants to go home. explained to pt the need for labs. pt finally agreed. 11/22/17 03:29 results discussed with pt who still feels fine and wants to go home to bed. Departure - Departure Time of Disposition: 03:30 Disposition: Home, Self-Care 01 Condition: Good Clinical Impression: Acute bronchitis, Bronchospasm - Discharge Information Instructions: Acute Bronchitis, Adult, [id number] Forms: ED Department Discharge Additional Instructions: 1) rest 2) avoid vigorous activities next 48 hours 3) follow up at clinic 4) recheck if there is any change or concern rx given; z-yung - My Orders Last 24 Hours: My Active Orders 11/22/17 01:37 RT Aerosol Therapy [RC] ASDIRECTED Chest 1V Frontal [CR] Urgent 11/22/17 02:16 EKG 12 Lead [EKG Documentation Completion] [RC] STAT - Assessment/Plan Last 24 Hours: My Active Orders 11/22/17 01:37 RT Aerosol Therapy [RC] ASDIRECTED Chest 1V Frontal [CR] Urgent 11/22/17 02:16 EKG 12 Lead [EKG Documentation Completion] [RC] STAT
[2017-11-22 01:47] VITALS: BP 129/101
[2017-11-22 03:05] LABS: ANION GAP 10.7; CHLORIDE,CL 104 mmol/L (101-111); SODIUM,NA 139 mmol/L (135-145)
--- NOTE | 2017-11-23 16:53 | EKG ---
11/22/2017 - RUBIN PAIGE - TIME: 1:31 a.m. FINDINGS: As per my reading, sinus rhythm at . [facility] /[id number]
== END 2017-11-22 03:48 | disposition home or self-care (01) ==
LOC: DL.ED 01:26
DX: J20.9 Acute bronchitis, unspecified (principal); I10 Essential (primary) hypertension; Z79.899 Other long term (current) drug therapy
CPT/HCPCS: 36415; 71045; 80053; 83605; 83880; 84484; 85025; 93005; 93010; 94640; 96374; 99284; J0696; 99283; J7620-GY

== ENCOUNTER 2018-05-16 19:03 | Emergency (ER) | payer MEDICARE, BC ==
[2018-05-16 19:10] VITALS: BP 119/87
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
== END 2018-05-16 19:30 | disposition home or self-care (01) ==
LOC: DL.ED 19:03
DX: R59.0 Localized enlarged lymph nodes (principal); I10 Essential (primary) hypertension; Z95.5 Presence of coronary angioplasty implant and graft; Z79.82 Long term (current) use of aspirin; Z79.01 Long term (current) use of anticoagulants; Z79.899 Other long term (current) drug therapy
CPT/HCPCS: 99283

== ENCOUNTER 2018-07-20 07:07 | Emergency (ER) | payer MEDICARE, BC ==
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
[2018-07-20 07:19] VITALS: BP 153/95
--- NOTE | 2018-07-20 07:24 | CR ---
Clinical history: 73-year-old male chest pain. Interpretation: No acute new cardiopulmonary abnormality identified in the interval since 18 January 2017 exam. Reproducible asymmetric elevation right hemidiaphragm and prominence of the left ventricle. No new cephalization of vascular flow, signs of alveolar edema or dependent pleural fluid accumulation. No new lung mass, hilar lymphadenopathy or focal lobar pneumonia. Chronic atelectasis/fibrosis right base. No pneumothorax or free subdiaphragmatic air.
[2018-07-20 07:35] LABS: ANION GAP 15.1; CHLORIDE,CL 101 mmol/L (101-111); SODIUM,NA 135 mmol/L (135-145)
== END 2018-07-20 08:33 | disposition home or self-care (01) ==
LOC: DL.ED 07:07
DX: R07.89 Other chest pain (principal); I10 Essential (primary) hypertension; Z79.899 Other long term (current) drug therapy
CPT/HCPCS: 36415; 71045; 80053; 84484; 85025; 85610; 93005; 99285-25

== ENCOUNTER 2018-07-21 04:55 | Emergency (ER) | payer MEDICARE, BC ==
[2018-07-21 05:06] VITALS: BP 137/92; PULSE 66
[2018-07-21 05:41] LABS: ANION GAP 14.2; CHLORIDE,CL 101 mmol/L (101-111); SODIUM,NA 135 mmol/L (135-145)
--- NOTE | 2018-07-21 07:02 | EDM.PDOC ---
ED HPI GENERAL MEDICAL PROBLEM - General Chief Complaint: Chest Pain Stated Complaint: AMBULANCE-CHEST PAIN Time Seen by Provider: 07/21/18 05:30 Source of Information: Reports: Patient History Limitations: Reports: No Limitations - History of Present Illness INITIAL COMMENTS - FREE TEXT/NARRATIVE: ED via [facility] with c/o chest pain. No SOB, Has not slept since yesterday morning. No radiation, nausea sweating. No fever or cough. Left Upper Chest Pain Score (Numeric/FACES): 5 - Related Data Allergies Allergy/AdvReac Type Severity Reaction Status Date / Time No Known Allergies Allergy Verified 07/20/18 07:19 Home Meds: Home Meds Carvedilol 25 mg PO BID 05/09/13 [History] Lisinopril [Prinivil] 40 mg PO DAILY 05/09/13 [History] Simvastatin [Zocor] 80 mg PO DAILY 05/09/13 [History] Spironolactone [Aldactone] 100 mg PO DAILY 05/09/13 [History] Aspirin [Halfprin] 81 mg PO BRK 11/12/16 [History] Sertraline HCl 25 mg PO DAILY 11/20/17 [History] Warfarin Sodium [Jantoven] 5 mg PO ASDIRECTED 11/20/17 [History] NIFEdipine [Afeditab Cr] 60 mg PO DAILY 07/20/18 [History] Nitroglycerin [Nitrostat] 1 tab PO .5MINUTES PRN MDD three doses 07/20/18 [ History] Past Medical History HEENT History: Reports: Impaired Vision Other HEENT History: wears corrective lenses 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, High Cholesterol, Hypertension, Stents Respiratory History: Reports: Bronchitis, Recurrent Gastrointestinal History: Reports: None Genitourinary History: Reports: None Musculoskeletal History: Reports: None Neurological History: Reports: None Psychiatric History: Reports: None Endocrine/Metabolic History: Reports: None Hematologic History: Reports: None Immunologic History: Reports: None Oncologic (Cancer) History: Reports: Other (See Below) 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 ED EXAM, GENERAL - Physical Exam Exam: See Below Exam Limited By: No Limitations General Appearance: Alert, Anxious, Obese Eye Exam: Bilateral Eye: EOMI Ears: Normal External Exam Nose: Normal Inspection Throat/Mouth: Normal Inspection Head: Atraumatic, Normocephalic Neck: Normal Inspection Respiratory/Chest: No Respiratory Distress, Lungs Clear, Normal Breath Sounds, Chest Non-Tender. No: Respiratory Distress, Decreased Breath Sounds, Accessory Muscle Use Cardiovascular: Normal Peripheral Pulses, Regular Rate, Rhythm GI/Abdominal: Normal Bowel Sounds, Soft, Non-Tender, No Distention. No: Guarding Extremities: Normal Inspection (pitting), Pedal Edema Neurological: Alert, Oriented, Normal Cognition Psychiatric: Normal Affect, Anxious Skin Exam: Warm, Dry, Intact, Normal Color EKG INTERPRETATION Rhythm: NSR Course - Vital Signs Last Recorded V/S: Last Vital Signs Temp 98.0 F 07/21/18 05:01 Pulse 66 07/21/18 05:01 Resp 18 07/21/18 05:01 BP 137/92 H 07/21/18 05:01 Pulse Ox 96 07/21/18 05:01 - Orders/Labs/Meds Orders: Active Orders 24 hr Category Date Time Status EKG 12 Lead [EKG Documentation Completion] [RC] STAT Care 07/21/18 05:06 Active Labs: Laboratory Tests 07/21/18 07/21/18 07/21/18 Range/Units 05:08 05:08 05:08 WBC 7.5 (5.0-10.0) 10^3/uL RBC 5.33 (4.6-6.2) 10^6/uL Hgb 15.5 (14.0-18.0) g/dL Hct 47.1 (40.0-54.0) % MCV 88.4 (80-100) fL MCH 29.1 (27.0-34.0) pg MCHC 32.9 L (33.0-35.0) g/dL Plt Count 151 (150-450) 10^3/uL Neut % (Auto) 58.7 (42.2-75.2) % Lymph % (Auto) 29.3 (20.5-50.1) % [place] % (Auto) 10.2 H (2-8) % Eos % (Auto) 1.5 (1.0-3.0) % Baso % (Auto) 0.3 (0.0-1.0) % PT 25.0 H (9.0-12.0) SEC INR 2.6 H (0.9-1.2) D-Dimer, Quantitative < 100 (0-400) ng/mL Sodium 135 (135-145) mmol/L Potassium 4.2 (3.6-5.0) mmol/L Chloride 101 (101-111) mmol/L Carbon Dioxide 24.0 (21.0-31.0) mmol/L Anion Gap 14.2 BUN 22 H (7-18) mg/dL Creatinine 1.1 (0.6-1.3) mg/dL Est Cr Clr Drug Dosing 63.70 mL/min Estimated GFR (MDRD) > 60 BUN/Creatinine Ratio 20.00 Glucose 112 H (74-105) mg/dL Calcium 8.9 (8.4-10.2) mg/dl Total Bilirubin 0.8 (0.2-1.0) mg/dL AST 21 (10-42) IU/L ALT 22 (10-60) IU/L Alkaline Phosphatase 71 (42-121) IU/L Creatine Kinase 29 (26-174) IU/L Troponin I < 0.02 (0.00-0.02) ng/ml Total Protein 7.2 (6.7-8.2) g/dl Albumin 3.7 (3.2-5.5) g/dl Globulin 3.5 Albumin/Globulin Ratio 1.06 - Re-Assessments/Exams Free Text/Narrative Re-Assessment/Exam: 07/21/18 07:02 Pain improved, no acute distress on arrival. Took zoloft early this am and thinks is now helping. Concerned has not slept well past 24 hour and possible blood clot. Reassured labs wnl and no worrisome findings. Requesting to go home. Departure - Departure Time of Disposition: 06:57 Disposition: Home, Self-Care 01 Condition: Good Clinical Impression: Atypical chest pain, Anxiety about health Instructions: Nonspecific Chest Pain, [id number] Forms: ED Department Discharge Additional Instructions: bland diet follow up in clinic with primary care. continue home medications - My Orders Last 24 Hours: My Active Orders 07/21/18 05:06 EKG 12 Lead [EKG Documentation Completion] [RC] STAT - Assessment/Plan Last 24 Hours: My Active Orders 07/21/18 05:06 EKG 12 Lead [EKG Documentation Completion] [RC] STAT
== END 2018-07-21 07:04 | disposition home or self-care (01) ==
LOC: DL.ED 04:55
DX: F41.9 Anxiety disorder, unspecified (principal); R07.89 Other chest pain; I10 Essential (primary) hypertension; Z79.899 Other long term (current) drug therapy; Z77.22 Contact with and (suspected) exposure to environmental tobacco smoke (acute) (chronic); Z79.82 Long term (current) use of aspirin
CPT/HCPCS: 36415; 80053; 82550; 84484; 85025; 85379; 85610; 93005; 99284

== ENCOUNTER 2018-08-04 12:35 | Emergency (ER) | payer MEDICARE, BC ==
[2018-08-04 12:39] VITALS: BP 101/52
--- NOTE | 2018-08-04 13:11 | EDM.PDOC ---
ED HPI GENERAL MEDICAL PROBLEM - General Chief Complaint: Chest Pain Stated Complaint: AMBULANCE Time Seen by Provider: 08/04/18 12:46 Source of Information: Reports: Patient, EMS, EMS Notes Reviewed, RN, RN Notes Reviewed History Limitations: Reports: No Limitations - History of Present Illness INITIAL COMMENTS - FREE TEXT/NARRATIVE: Pt to ER per [facility] with c/o chest pain. He states the midsternal chest pain began suddenly just after he began eating today. He states the pain was sharp, stabbing, admits to chest heaviness, and heavy arms. He admits to hx of CAD with stent placement, hx of anxiety. States he took Sertraline today. Denies history of GERD. Admits to cough recently, and increased mucous production. Denies fever, chills, N/V/D. EMS reports sinus rhythm, BP stable. ASA and Nitro x2 given en route. Onset: Today, Sudden Duration: Intermittent Location: Reports: Chest Quality: Reports: Sharp, Stabbing Severity: Moderate Improves with: Reports: None Worsens with: Reports: None Left Chest Pain Score (Numeric/FACES): 4 - Related Data Allergies Allergy/AdvReac Type Severity Reaction Status Date / Time No Known Allergies Allergy Verified 08/04/18 12:40 Home Meds: Home Meds Carvedilol 25 mg PO BID 05/09/13 [History] Lisinopril [Prinivil] 40 mg PO DAILY 05/09/13 [History] Simvastatin [Zocor] 80 mg PO DAILY 05/09/13 [History] Spironolactone [Aldactone] 100 mg PO DAILY 05/09/13 [History] Aspirin [Halfprin] 81 mg PO BRK 11/12/16 [History] Sertraline HCl 25 mg PO DAILY 11/20/17 [History] Warfarin Sodium [Jantoven] 5 mg PO ASDIRECTED 11/20/17 [History] NIFEdipine [Afeditab Cr] 60 mg PO DAILY 07/20/18 [History] Nitroglycerin [Nitrostat] 1 tab PO .5MINUTES PRN MDD three doses 07/20/18 [ History] Past Medical History HEENT History: Reports: Impaired Vision Other HEENT History: wears corrective lenses 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, High Cholesterol, Hypertension, Stents Respiratory History: Reports: Bronchitis, Recurrent Gastrointestinal History: Reports: None Genitourinary History: Reports: None Musculoskeletal History: Reports: None Neurological History: Reports: None Psychiatric History: Reports: None Endocrine/Metabolic History: Reports: None Hematologic History: Reports: None Immunologic History: Reports: None Oncologic (Cancer) History: Reports: Other (See Below) 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" Dermatologic History: Reports: Cellulitis - Infectious Disease History Infectious Disease History: Reports: None - Past Surgical History Head Surgeries/Procedures: Reports: None HEENT Surgical History: Reports: None Social & Family History - Family History Family Medical History: Noncontributory - Tobacco Use Smoking Status *Q: Never Smoker Second Hand Smoke Exposure: No - Caffeine Use Caffeine Use: Reports: None - Recreational Drug Use Recreational Drug Use: No - Living Situation & Occupation Occupation: Retired ED ROS GENERAL - Review of Systems Review Of Systems: ROS reveals no pertinent complaints other than HPI. ED EXAM, GENERAL - Physical Exam Exam: See Below Exam Limited By: No Limitations General Appearance: Alert, WD/WN, No Apparent Distress Eye Exam: Bilateral Eye: EOMI, Normal Inspection Ears: Normal External Exam, Hearing Grossly Normal Nose: Normal Inspection Throat/Mouth: Normal Inspection, Normal Voice, No Airway Compromise Head: Atraumatic, Normocephalic Neck: Normal Inspection, Supple, Non-Tender, Full Range of Motion Respiratory/Chest: No Respiratory Distress, Lungs Clear, Normal Breath Sounds, No Accessory Muscle Use, Chest Non-Tender Cardiovascular: Normal Peripheral Pulses, Regular Rate, Rhythm, No Edema, No Gallop, No JVD, No Murmur, No Rub Peripheral Pulses: 2+: Radial (L), Radial (R) GI/Abdominal: Normal Bowel Sounds, Soft, Non-Tender (Male) Exam: Deferred Rectal (Males) Exam: Deferred Back Exam: Normal Inspection, Full Range of Motion Extremities: Normal Inspection, Normal Range of Motion, Non-Tender, No Pedal Edema, Normal Capillary Refill Neurological: Alert, Oriented, CN II-XII Intact, Normal Cognition, Normal Gait, Normal Reflexes, No Motor/Sensory Deficits Psychiatric: Normal Affect, Normal Mood Skin Exam: Warm, Dry, Intact, Normal Color, No Rash Lymphatic: No Adenopathy EKG INTERPRETATION EKG Date: 08/04/18 Time: 12:39 Rhythm: NSR Rate (Beats/Min): 67 [place]: Normal P-Wave: Present QRS: Normal ST-T: Normal QT: Normal Comparison: No Change Course - Vital Signs Last Recorded V/S: Last Vital Signs Temp 97.2 F 08/04/18 12:36 Pulse 70 08/04/18 12:36 Resp 22 H 08/04/18 12:36 BP 101/52 L 08/04/18 12:36 Pulse Ox 93 L 08/04/18 12:36 - Orders/Labs/Meds Orders: Active Orders 24 hr Category Date Time Status EKG Documentation Completion [RC] STAT Care 08/04/18 13:03 Active Labs: Laboratory Tests 08/04/18 08/04/18 08/04/18 Range/Units 13:14 13:14 13:14 WBC 7.7 (5.0-10.0) 10^3/uL RBC 5.41 (4.6-6.2) 10^6/uL Hgb 15.9 (14.0-18.0) g/dL Hct 48.8 (40.0-54.0) % MCV 90.2 (80-100) fL MCH 29.4 (27.0-34.0) pg MCHC 32.6 L (33.0-35.0) g/dL Plt Count 153 (150-450) 10^3/uL Neut % (Auto) 62.2 (42.2-75.2) % Lymph % (Auto) 26.6 (20.5-50.1) % Price % (Auto) 9.5 H (2-8) % Eos % (Auto) 1.4 (1.0-3.0) % Baso % (Auto) 0.3 (0.0-1.0) % PT 23.4 H (9.0-12.0) SEC INR 2.4 H (0.9-1.2) Sodium 136 (135-145) mmol/L Potassium 4.8 (3.6-5.0) mmol/L Chloride 103 (101-111) mmol/L Carbon Dioxide 24.0 (21.0-31.0) mmol/L Anion Gap 13.8 BUN 30 H (7-18) mg/dL Creatinine 1.6 H (0.6-1.3) mg/dL Est Cr Clr Drug Dosing 43.79 mL/min Estimated GFR (MDRD) 43 BUN/Creatinine Ratio 18.75 Glucose 129 H (74-105) mg/dL Calcium 9.1 (8.4-10.2) mg/dl Total Bilirubin 0.7 (0.2-1.0) mg/dL AST 26 (10-42) IU/L ALT 34 (10-60) IU/L Alkaline Phosphatase 75 (42-121) IU/L Troponin I < 0.02 (0.00-0.08) ng/mL Total Protein 7.4 (6.7-8.2) g/dl Albumin 4.1 (3.2-5.5) g/dl Globulin 3.3 Albumin/Globulin Ratio 1.24 - Radiology Interpretation Free Text/Narrative:: Chest xray: No acute findings See rad report Departure - Departure Time of Disposition: 13:50 Disposition: Home, Self-Care 01 Condition: Fair Clinical Impression: Acute coronary syndrome Instructions: Coronary Artery Disease, Male, Acute Coronary Syndrome, Angina Pectoris, [id number] Forms: ED Department Discharge Additional Instructions: Use prescribed Nitro when having chest pain Follow up with your primary care facility - My Orders Last 24 Hours: My Active Orders 08/04/18 13:03 EKG Documentation Completion [RC] STAT - Assessment/Plan Last 24 Hours: My Active Orders 08/04/18 13:03 EKG Documentation Completion [RC] STAT
--- NOTE | 2018-08-04 13:23 | CR ---
Clinical history: 73-year-old male experiencing chest pain. Interpretation: Upright AP portable chest unchanged except for less than optimal inspiratory effort and patient rotation when compared to 20 July 2018. Normal cardiac silhouette without new cephalization of vascular flow, signs of alveolar edema or dependent pleural fluid accumulation. No new lung mass, hilar lymphadenopathy or focal lobar pneumonia. No pneumothorax or free subdiaphragmatic air.
[2018-08-04 13:41] LABS: ANION GAP 13.8; CHLORIDE,CL 103 mmol/L (101-111); SODIUM,NA 136 mmol/L (135-145)
== END 2018-08-04 14:25 | disposition home or self-care (01) ==
LOC: DL.ED 12:35
DX: I24.9 Acute ischemic heart disease, unspecified (principal); I10 Essential (primary) hypertension; E78.00 Pure hypercholesterolemia, unspecified; Z79.01 Long term (current) use of anticoagulants; Z79.82 Long term (current) use of aspirin; Z79.899 Other long term (current) drug therapy; Z86.718 Personal history of other venous thrombosis and embolism
CPT/HCPCS: 36415; 71045; 80053; 84484; 85025; 85610; 93005; 93010; 99284; 99285-25

== ENCOUNTER 2018-11-23 13:18 | Emergency (ER) | payer MEDICARE, BC ==
[2018-11-23 14:01] LABS: ANION GAP 11.6; CHLORIDE,CL 103 mmol/L (101-111); SODIUM,NA 138 mmol/L (135-145)
--- NOTE | 2018-11-23 14:01 | EDM.PDOC ---
ED HPI GENERAL MEDICAL PROBLEM - General Chief Complaint: Chest Pain Stated Complaint: CHEST PAIN Time Seen by Provider: 11/23/18 13:50 Source of Information: Reports: Patient History Limitations: Reports: No Limitations - History of Present Illness INITIAL COMMENTS - FREE TEXT/NARRATIVE: This 73 yo male patient reports to the ED with left sided chest pain. The patient reports when he got up this morning he had a small amount of chest pain , but as he was driving (at 12:30) he started to have increased chest pain to the right upper side of his chest. The patient reports his chest pain went away by the time he got to the ED. The patient reports he has had increased chest congestion over the past 24 hours with a cough. Onset: Today Onset Date: 11/23/18 Onset Time: 08:30 Duration: Resolved Prior to Arrival Location: Reports: Chest (left upper chest pain (resolved by time of visit)) Quality: Reports: Ache, Sharp, Stabbing Severity: Moderate Improves with: Reports: None Worsens with: Reports: None Associated Symptoms: Reports: Chest Pain Chest Pain Score (Numeric/FACES): 0 - Related Data Allergies Allergy/AdvReac Type Severity Reaction Status Date / Time No Known Allergies Allergy Verified 11/23/18 14:17 Home Meds: Home Meds Carvedilol 25 mg PO BID 05/09/13 [History] Lisinopril [Prinivil] 40 mg PO DAILY 05/09/13 [History] Simvastatin [Zocor] 80 mg PO DAILY 05/09/13 [History] Spironolactone [Aldactone] 100 mg PO DAILY 05/09/13 [History] Aspirin [Halfprin] 81 mg PO BRK 11/12/16 [History] Sertraline HCl 25 mg PO DAILY 11/20/17 [History] Warfarin Sodium [Jantoven] 5 mg PO ASDIRECTED 11/20/17 [History] NIFEdipine [Afeditab Cr] 60 mg PO DAILY 07/20/18 [History] Nitroglycerin [Nitrostat] 1 tab PO .5MINUTES PRN MDD three doses 07/20/18 [ History] Past Medical History HEENT History: Reports: Impaired Vision Other HEENT History: wears corrective lenses 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, High Cholesterol, Hypertension, Stents Respiratory History: Reports: Bronchitis, Recurrent Gastrointestinal History: Reports: None Genitourinary History: Reports: None Musculoskeletal History: Reports: None Neurological History: Reports: None Psychiatric History: Reports: None Endocrine/Metabolic History: Reports: None Hematologic History: Reports: None Immunologic History: Reports: None Oncologic (Cancer) History: Reports: Other (See Below) 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 ED EXAM, GENERAL - Physical Exam Exam: See Below Exam Limited By: No Limitations General Appearance: Alert, WD/WN, Anxious, Mild Distress Eye Exam: Bilateral Eye: EOMI, Normal Inspection, PERRL Ears: Normal External Exam, Normal Canal, Hearing Grossly Normal, Normal TMs Nose: Normal Inspection, Normal Mucosa, No Blood Throat/Mouth: Normal Inspection, Normal Lips, Normal Teeth, Normal Gums, Normal Oropharynx, Normal Voice, No Airway Compromise Head: Atraumatic, Normocephalic Neck: Normal Inspection, Supple, Non-Tender, Full Range of Motion Respiratory/Chest: No Respiratory Distress, Lungs Clear, Normal Breath Sounds, No Accessory Muscle Use, Chest Non-Tender Cardiovascular: Normal Peripheral Pulses, Regular Rate, Rhythm, No Edema, No Gallop, No JVD, No Murmur, No Rub GI/Abdominal: Normal Bowel Sounds, Soft, Non-Tender, No Organomegaly, No Distention, No Abnormal Bruit, No Mass (Male) Exam: Deferred Rectal (Males) Exam: Deferred Back Exam: Normal Inspection, Full Range of Motion, NT Extremities: Normal Inspection, Normal Range of Motion, Non-Tender, Normal Capillary Refill, No Pedal Edema Neurological: Alert, Oriented, CN II-XII Intact, Normal Cognition, Normal Gait, Normal Reflexes, No Motor/Sensory Deficits Psychiatric: Normal Affect, Normal Mood Skin Exam: Warm, Dry, Intact, Normal Color, No Rash Lymphatic: No Adenopathy Course - Vital Signs Last Recorded V/S: Last Vital Signs Temp 36.3 C 11/23/18 13:41 Pulse 61 08/28/19 14:17 Resp 18 11/23/18 14:17 BP 115/68 11/23/18 14:17 Pulse Ox 95 11/23/18 14:17 - Orders/Labs/Meds Orders: Active Orders 24 hr Category Date Time Status EKG Documentation Completion [RC] URGENT Care 11/23/18 13:19 Active Chest 1V Frontal [CR] Urgent Exams 11/23/18 13:20 Taken Labs: Laboratory Tests 11/23/18 11/23/18 Range/Units 13:36 13:36 WBC 8.6 (5.0-10.0) 10^3/uL RBC 5.10 (4.6-6.2) 10^6/uL Hgb 15.1 (14.0-18.0) g/dL Hct 46.4 (40.0-54.0) % MCV 91.0 (80-100) fL MCH 29.6 (27.0-34.0) pg MCHC 32.5 L (33.0-35.0) g/dL Plt Count 151 (150-450) 10^3/uL Neut % (Auto) 65.8 (42.2-75.2) % Lymph % (Auto) 23.5 (20.5-50.1) % [place] % (Auto) 9.1 H (2-8) % Eos % (Auto) 1.5 (1.0-3.0) % Baso % (Auto) 0.1 (0.0-1.0) % Sodium 138 (135-145) mmol/L Potassium 4.6 (3.6-5.0) mmol/L Chloride 103 (101-111) mmol/L Carbon Dioxide 28.0 (21.0-31.0) mmol/L Anion Gap 11.6 BUN 30 H (7-18) mg/dL Creatinine 1.5 H (0.6-1.3) mg/dL Est Cr Clr Drug Dosing 46.71 mL/min Estimated GFR (MDRD) 46 BUN/Creatinine Ratio 20.00 Glucose 110 H (74-105) mg/dL Calcium 8.6 (8.4-10.2) mg/dl Total Bilirubin 0.6 (0.2-1.0) mg/dL AST 19 (10-42) IU/L ALT 20 (10-60) IU/L Alkaline Phosphatase 70 (42-121) IU/L Troponin I < 0.02 (0.00-0.02) ng/ml Total Protein 6.9 (6.7-8.2) g/dl Albumin 3.9 (3.2-5.5) g/dl Globulin 3.0 Albumin/Globulin Ratio 1.30 Meds: Medications Discontinued Medications Generic Name Dose Route Start Last Admin Trade Name Freq PRN Reason Stop Dose Admin Aspirin 324 mg 11/23/18 13:55 Aspirin PO 11/23/18 13:56 ONETIME ONE Departure - Departure Time of Disposition: 14:24 Disposition: Home, Self-Care 01 Condition: Fair Clinical Impression: Nonspecific chest pain, Viral URI with cough Instructions: Nonspecific Chest Pain, [id number], Upper Respiratory Infection , Adult, [id number] Forms: ED Department Discharge Care Plan Goals: The patient was advised of the examination, lab, EKG and x-ray results during the visit. The patient was given a dose of Aspirin while in the ED. The patient was discharged with a script for Tessalon Pearles (100 mg) #30 to take 1 by mouth 3 times per day as needed. If the patient has any additional symptoms or concerns, the patient should either return to the emergency department or visit his primary care facility. - My Orders Last 24 Hours: My Active Orders 11/23/18 13:19 EKG Documentation Completion [RC] URGENT 11/23/18 13:20 Chest 1V Frontal [CR] Urgent - Assessment/Plan Last 24 Hours: My Active Orders 11/23/18 13:19 EKG Documentation Completion [RC] URGENT 11/23/18 13:20 Chest 1V Frontal [CR] Urgent
[2018-11-23 14:18] VITALS: BP 115/68
[2018-11-23] MEDS: Aspirin 81 MG Tab.Chew PO ONE (14:21)
--- NOTE | 2018-11-23 14:56 | CR ---
EXAMINATION: Chest 1V Frontal SEX: Male AGE: 73 years CLINICAL HISTORY: 73-year-old male complaining of chest pain. INTERPRETATION: 1. Upright AP portable chest film unchanged except for technique since 04 Aug 2018 comparison film. 2. Chronic asymmetric elevation right hemidiaphragm and prominence of the proximal pulmonary artery segments. 3. Normal cardiac silhouette without cephalization of flow, alveolar edema or dependent pleural fluid accumulation. 4. No new lung mass or focal lobar pneumonia. CONCLUSION: No acute new cardiopulmonary abnormality.
== END 2018-11-23 14:30 | disposition home or self-care (01) ==
LOC: DL.ED 13:18
DX: R07.9 Chest pain, unspecified (principal); J06.9 Acute upper respiratory infection, unspecified; I10 Essential (primary) hypertension; Z79.82 Long term (current) use of aspirin; Z79.899 Other long term (current) drug therapy; Z79.01 Long term (current) use of anticoagulants; Z95.5 Presence of coronary angioplasty implant and graft
CPT/HCPCS: 36415; 71045; 80053; 84484; 85025; 93005; 99285-25; A9270-GY

== ENCOUNTER 2019-07-24 16:46 | Emergency (ER) | payer MEDICARE, BC ==
[2019-07-24] MEDS ORDERED: Gentamicin 0.3% Ophth Soln 5 ML Bottle EYERT ONE (16:47)
[2019-07-24 17:34] VITALS: PULSE 82
[2019-07-24 18:04] VITALS: BP 126/82
[2019-07-24] MEDS ORDERED: Tetracaine HCl/PF 0.5% 4 ML Bottle EYERT ONE (18:19)
[2019-07-24] MEDS ORDERED: Fluorescein 1 MG Ophth Strip EYERT ONE (18:19)
--- NOTE | 2019-07-24 18:24 | EDM.PDOC ---
ED HPI GENERAL MEDICAL PROBLEM - General Chief Complaint: Eye Problems Stated Complaint: EYE PROBLEM Time Seen by Provider: 07/24/19 18:18 Source of Information: Reports: Patient History Limitations: Reports: No Limitations - History of Present Illness INITIAL COMMENTS - FREE TEXT/NARRATIVE: This 74 yo male patient reports to the ED with pain and mattering from his right eye. The patient reports he started noticing symptoms yesterday and they have not gotten any better. The patient believes he may have scratched his eye while getting the sleep out of his eye yesterday morning. The patient reports he feels like something is under his upper eyelid. Onset Date: 07/23/19 Duration: Constant Location: Reports: Head (right eye) Quality: Reports: Ache, Dull Severity: Mild Improves with: Reports: None Worsens with: Reports: None Context: Reports: Other Associated Symptoms: Reports: No Other Symptoms - Related Data Allergies Allergy/AdvReac Type Severity Reaction Status Date / Time No Known Allergies Allergy Verified 07/24/19 17:57 Home Meds: Home Meds Simvastatin [Zocor] 80 mg PO DAILY 05/09/13 [History] Spironolactone [Aldactone] 100 mg PO DAILY 05/09/13 [History] carvediloL [Carvedilol] 25 mg PO BID 05/09/13 [History] lisinopriL [Prinivil] 40 mg PO DAILY 05/09/13 [History] Aspirin [Halfprin] 81 mg PO BRK 11/12/16 [History] Sertraline HCl 25 mg PO DAILY 11/20/17 [History] Warfarin Sodium [Jantoven] 5 mg PO ASDIRECTED 11/20/17 [History] NIFEdipine [Afeditab Cr] 60 mg PO DAILY 07/20/18 [History] Nitroglycerin [Nitrostat] 1 tab PO .5MINUTES PRN MDD three doses 07/20/18 [ History] Past Medical History HEENT History: Reports: Impaired Vision Other HEENT History: wears corrective lenses 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, High Cholesterol, Hypertension, Stents Respiratory History: Reports: Bronchitis, Recurrent Gastrointestinal History: Reports: None Genitourinary History: Reports: None Musculoskeletal History: Reports: None Neurological History: Reports: None Psychiatric History: Reports: None Endocrine/Metabolic History: Reports: None Hematologic History: Reports: None Immunologic History: Reports: None Oncologic (Cancer) History: Reports: Other (See Below) 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" Dermatologic History: Reports: Cellulitis - Infectious Disease History Infectious Disease History: Reports: None - Past Surgical History Head Surgeries/Procedures: Reports: None HEENT Surgical History: Reports: None Social & Family History - Family History Family Medical History: Noncontributory - Tobacco Use Smoking Status *Q: Never Smoker Second Hand Smoke Exposure: No - Caffeine Use Caffeine Use: Reports: None - Recreational Drug Use Recreational Drug Use: No - Living Situation & Occupation Occupation: Retired ED ROS GENERAL - Review of Systems Review Of Systems: Comprehensive ROS is negative, except as noted in HPI. ED EXAM GENERAL W FULL EYE - Physical Exam Exam: See Below Exam Limited By: No Limitations General Appearance: Alert, WD/WN, Mild Distress Eye Exam: Bilateral Eye: EOMI Extraocular Movements: Bilateral: Intact Pupils: Normal Accommodation Pupillary Size: Bilateral: 4 mm Pupillary Reaction: Bilateral: Brisk Ears: Normal External Exam, Normal Canal, Hearing Grossly Normal, Normal TMs Nose: Normal Inspection, Normal Mucosa, No Blood Throat/Mouth: Normal Inspection, Normal Lips, Normal Teeth, Normal Gums, Normal Oropharynx, Normal Voice, No Airway Compromise Head: Atraumatic, Normocephalic Neck: Normal Inspection, Supple, Non-Tender, Full Range of Motion Respiratory/Chest: No Respiratory Distress, Lungs Clear, Normal Breath Sounds, No Accessory Muscle Use, Chest Non-Tender Cardiovascular: Normal Peripheral Pulses, Regular Rate, Rhythm, No Edema, No Gallop, No JVD, No Murmur, No Rub (Male) Exam: Deferred (Female) Exam: Deferred Neurological: Alert, Oriented, CN II-XII Intact, Normal Cognition, Normal Gait, Normal Reflexes, No Motor/Sensory Deficits Psychiatric: Normal Affect, Normal Mood Skin Exam: Warm, Dry, Intact, Normal Color, No Rash Lymphatic: No Adenopathy ED EYE w/ Add Procedure - Eye Procedure Alcaine Drops Administered: Yes Eye FB Removal: Removal w/ Cotton Swab Antibiotic Oinment/Drps Admin: Right Eye (Gentimicin) Course - Vital Signs Last Recorded V/S: Last Vital Signs Temp 38.1 C 07/24/19 17:32 Pulse 82 07/24/19 17:32 Resp 24 H 07/24/19 17:32 BP 126/82 07/24/19 18:03 Pulse Ox 95 07/24/19 17:32 - Orders/Labs/Meds Meds: Medications Discontinued Medications Generic Name Dose Route Start Last Admin Trade Name Tammy PRN Reason Stop Dose Admin Fluorescein Sodium 1 mg 07/24/19 18:19 07/24/19 18:27 Ful-Daisy EYERT 07/24/19 18:20 1 mg ONETIME ONE Administration Tetracaine HCl 1 ml 07/24/19 18:19 07/24/19 18:27 Tetracaine 0.5% Steri-Unit Digna EYERT 07/24/19 18:20 1 ml ASDIRECTED ONE Administration Departure - Departure Time of Disposition: 18:39 Disposition: Home, Self-Care 01 Condition: Fair Clinical Impression: Corneal abrasion, right Qualifiers: Encounter type: initial encounter Qualified Code(s): S05.01XA - Injury of conjunctiva and corneal abrasion without foreign body, right eye, initial encounter - Discharge Information *PRESCRIPTION DRUG MONITORING PROGRAM REVIEWED*: Not Applicable *COPY OF PRESCRIPTION DRUG MONITORING REPORT IN PATIENT [place]: Not Applicable Instructions: Corneal Abrasion, [id number], Eye Foreign Body, [id number] Forms: ED Department Discharge Care Plan Goals: The patient was advised of the examination results during the visit. A small foreign body was removed from under the right upper eyelid while in the ED. The patient was discharged with Gentek Solution to place 1 drop in the right eye 4 times per day for 7 days. If the patient has any additional symptoms or concerns , the patient should either return to the emergency department or visit his primary care facility. Sepsis Event Note - Evaluation Sepsis Screening Result: Possible Sepsis Risk - Focused Exam Vital Signs: Vital Signs Temp Pulse Resp BP Pulse Ox 07/24/19 18:03 126/82 07/24/19 17:32 38.1 C 82 24 H 148/75 H 95 Date Exam was Performed: 07/24/19 Time Exam was Performed: 18:35
[2019-07-24] MEDS ORDERED: Gentamicin 0.3% Ophth Soln 5 ML Bottle ONE (18:38)
== END 2019-07-24 18:48 | disposition home or self-care (01) ==
LOC: DL.ED 16:46
DX: S05.01XA Injury of conjunctiva and corneal abrasion without foreign body, right eye, initial encounter (principal); E78.00 Pure hypercholesterolemia, unspecified; I10 Essential (primary) hypertension; W22.8XXA Striking against or struck by other objects, initial encounter
CPT/HCPCS: 67938; 99283-25; A9270-GY

== ENCOUNTER 2019-07-28 09:15 | Emergency (ER) | payer MEDICARE, BC | END 2019-07-28 09:37 | disposition left against medical advice (07) | LOC: DL.ED 09:15 | DX: Z53.21 Procedure and treatment not carried out due to patient leaving prior to being seen by health care provider (principal) ==

== ENCOUNTER 2019-10-04 13:16 | Emergency (ER) | payer MEDICARE, BC ==
[2019-10-04] MEDS ORDERED: Sodium Chloride 0.9% 10 ML Syringe FLUSH PRN (13:47)
[2019-10-04 13:48] VITALS: BP 97/56; PULSE 63
[2019-10-04 14:21] LABS: ANION GAP 10.8 mEq/L (7-13); CHLORIDE,CL 104 mmol/L (98-107); SODIUM,NA 139 mmol/L (136-145)
--- NOTE | 2019-10-04 15:18 | CR ---
EXAMINATION: Chest 2V SEX: Male AGE: 74 years CLINICAL HISTORY: 74-year-old male with SOB. Comparison exams 04 august and 23 November 2018. INTERPRETATION: No acute new cardiopulmonary abnormality. 1. Normal cardiac silhouette and pulmonary vascularity. No new signs of pulmonary vascular congestion, cephalization of flow, alveolar edema or dependent pleural effusion. 2. Mediastinal width and midline tracheal bronchial airway unremarkable. 3. Chronic asymmetric elevation right hemidiaphragm with some underlying platelike atelectasis. 4. No new lung mass, hilar lymphadenopathy or focal lobar pneumonia. 5. No pneumothorax or pneumomediastinum. Bony thorax unremarkable.
--- NOTE | 2019-10-04 15:44 | EDM.PDOC ---
ED HPI GENERAL MEDICAL PROBLEM - General Chief Complaint: Cardiovascular Problem Stated Complaint: LOW BP Time Seen by Provider: 10/04/19 14:20 Source of Information: Reports: Patient, RN, RN Notes Reviewed History Limitations: Reports: No Limitations - History of Present Illness INITIAL COMMENTS - FREE TEXT/NARRATIVE: Patient presents to ER with complaint of low blood pressure. States he checked blood pressure this A.M. and it was 84/7. States it is normally 126/80. States drinks plenty of water. States he was dizzy when he stood today. No recent illness. Cough recently--expectorating mucous. He has shortness of breath and chest pains with cough. No nausea, vomiting, diarrhea, fever or chills. Onset: Today Duration: Other (low blood pressure) Severity: Mild Improves with: Reports: None Worsens with: Reports: None Associated Symptoms: Reports: No Other Symptoms Treatments BILLET [employer]ER: Reports: EKG, IV/IO - Related Data Allergies Allergy/AdvReac Type Severity Reaction Status Date / Time No Known Allergies Allergy Verified 10/04/19 14:00 Home Meds: Home Meds Simvastatin [Zocor] 80 mg PO DAILY 05/09/13 [History] Spironolactone [Aldactone] 100 mg PO DAILY 05/09/13 [History] carvediloL [Carvedilol] 25 mg PO BID 05/09/13 [History] lisinopriL [Prinivil] 40 mg PO DAILY 05/09/13 [History] Aspirin [Halfprin] 81 mg PO BRK 11/12/16 [History] Sertraline HCl 25 mg PO DAILY 11/20/17 [History] Warfarin Sodium [Jantoven] 5 mg PO ASDIRECTED 11/20/17 [History] NIFEdipine [Afeditab Cr] 60 mg PO DAILY 07/20/18 [History] Nitroglycerin [Nitrostat] 1 tab PO .5MINUTES PRN MDD three doses 07/20/18 [History] Past Medical History HEENT History: Reports: Impaired Vision Other HEENT History: wears corrective lenses 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, High Cholesterol, Hypertension, Stents Respiratory History: Reports: Bronchitis, Recurrent, Pneumonia, Recurrent Gastrointestinal History: Reports: None Genitourinary History: Reports: UTI, Recurrent Musculoskeletal History: Reports: None Neurological History: Reports: None Psychiatric History: Reports: Dementia Endocrine/Metabolic History: Reports: None Hematologic History: Reports: None Immunologic History: Reports: None Oncologic (Cancer) History: Reports: Other (See Below) 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" Dermatologic History: Reports: Cellulitis - Infectious Disease History Infectious Disease History: Reports: None - Past Surgical History Head Surgeries/Procedures: Reports: None HEENT Surgical History: Reports: None Social & Family History - Family History Family Medical History: Noncontributory - Tobacco Use Smoking Status *Q: Never Smoker Second Hand Smoke Exposure: No - Caffeine Use Caffeine Use: Reports: Coffee - Recreational Drug Use Recreational Drug Use: No - Living Situation & Occupation Occupation: Retired ED ROS GENERAL - Review of Systems Review Of Systems: Comprehensive ROS is negative, except as noted in HPI. ED EXAM, GENERAL - Physical Exam Exam: See Below Exam Limited By: No Limitations General Appearance: Alert, WD/WN, No Apparent Distress Eye Exam: Bilateral Eye: EOMI, Normal Inspection, PERRL Ears: Normal External Exam, Normal Canal, Hearing Grossly Normal, Normal TMs Nose: Normal Inspection, Normal Mucosa, No Blood Throat/Mouth: Normal Inspection, Normal Lips, Normal Teeth, Normal Gums, Normal Oropharynx, Normal Voice, No Airway Compromise Head: Atraumatic, Normocephalic Neck: Normal Inspection, Supple, Non-Tender, Full Range of Motion Respiratory/Chest: Other (diminished fine crackles bases) Cardiovascular: Other (distant) GI/Abdominal: Normal Bowel Sounds, Soft, Non-Tender, No Organomegaly, No Distention, No Abnormal Bruit, No Mass (Male) Exam: Deferred Rectal (Males) Exam: Deferred Back Exam: Normal Inspection, Full Range of Motion, NT Extremities: Normal Inspection, Normal Range of Motion, Non-Tender, Normal Capillary Refill, No Pedal Edema Neurological: Alert, Oriented, CN II-XII Intact, Normal Cognition, Normal Gait, Normal Reflexes, No Motor/Sensory Deficits Psychiatric: Normal Affect, Normal Mood Skin Exam: Warm, Dry, Intact, Normal Color, No Rash Lymphatic: No Adenopathy Course - Vital Signs Last Recorded V/S: Last Vital Signs Temp 96.8 F L 10/04/19 13:47 Pulse 63 10/04/19 13:47 Resp 22 H 10/04/19 13:47 BP 97/56 L 10/04/19 13:47 Pulse Ox 63 L 10/04/19 13:47 Orthostatic Blood Pressure [ 91/64 Standing] Orthostatic Blood Pressure [ 116/66 Sitting] Orthostatic Blood Pressure [ 115/70 Supine] - Orders/Labs/Meds Orders: Active Orders 24 hr Category Date Time Status EKG Documentation Completion [RC] STAT Care 10/04/19 13:47 Active Peripheral IV Care [RC] . DIRECTED Care 10/04/19 13:48 Active Peripheral IV Insertion Adult [OM.PC] Stat Oth 10/04/19 13:47 Ordered Labs: Laboratory Tests 10/04/19 10/04/19 10/04/19 Range/Units 13:48 13:48 13:48 WBC 7.9 (5.0-10.0) 10^3/uL RBC 5.47 (4.6-6.2) 10^6/uL Hgb 16.0 (14.0-18.0) g/dL Hct 49.7 (40.0-54.0) % MCV 90.9 (80-100) fL MCH 29.3 (27.0-34.0) pg MCHC 32.2 L (33.0-35.0) g/dL Plt Count 164 (150-450) 10^3/uL Neut % (Auto) 65.5 (42.2-75.2) % Lymph % (Auto) 23.0 (20.5-50.1) % [place] % (Auto) 9.8 H (2-8) % Eos % (Auto) 1.4 (1.0-3.0) % Baso % (Auto) 0.3 (0.0-1.0) % Sodium 139 (136-145) mmol/L Potassium 4.8 (3.5-5.1) mmol/L Chloride 104 (98-107) mmol/L Carbon Dioxide 29 (21-32) mmol/L Anion Gap 10.8 (7-13) mEq/L BUN 38 H (7-18) mg/dL Creatinine 1.70 H (0.70-1.30) mg/dL Est Cr Clr Drug Dosing 40.60 mL/min Estimated GFR (MDRD) 40 BUN/Creatinine Ratio 22.4 (No establ ref range) Glucose 121 H (74-99) mg/dL Calcium 9.0 (8.5-10.1) mg/dL Total Bilirubin 0.4 (0.2-1.0) mg/dL AST 19 (15-37) U/L ALT 31 (16-63) U/L Alkaline Phosphatase 81 (46-116) U/L Troponin I < 0.017 (0.000-0.056) ng/mL B-Natriuretic Peptide 98 (0-100) pg/ml Total Protein 7.2 (6.4-8.2) g/dL Albumin 3.4 (3.4-5.0) g/dL Globulin 3.8 Albumin/Globulin Ratio 0.9 Meds: Medications Discontinued Medications Generic Name Dose Route Start Last Admin Trade Name Freq PRN Reason Stop Dose Admin Sodium Chloride 10 ml 10/04/19 13:47 10/04/19 14:52 Saline Flush FLUSH 10 ml ASDIRECTED PRN Administration Keep Vein Open - Radiology Interpretation Free Text/Narrative:: Chest x-ray: No acute new cardiopulmonary abnormality See radiologist report Departure - Departure Time of Disposition: 15:43 Disposition: Home, Self-Care 01 Reason for Transfer *Q: Other Condition: Fair Clinical Impression: Hypotension Qualifiers: Hypotension type: unspecified hypotension type Qualified Code(s): I95.9 - Hypotension, unspecified Instructions: Hypotension, [id number] Forms: ED Department Discharge Additional Instructions: Drink plenty of water Follow-up with your primary care provider for adjustment of blood pressure meds if necessary Return to ER with any further problems Stand up slowly, do not stand up quick, be very careful when standing Sepsis Event Note (ED) - Evaluation Sepsis Screening Result: No Definite Risk - Focused Exam Vital Signs: Vital Signs Temp Pulse Resp BP Pulse Ox 10/04/19 13:47 96.8 F L 63 22 H 97/56 L 63 L - My Orders Last 24 Hours: My Active Orders 10/04/19 13:47 EKG Documentation Completion [RC] STAT Peripheral IV Insertion Adult [OM.PC] Stat 10/04/19 13:48 Peripheral IV Care [RC] . DIRECTED - Assessment/Plan Last 24 Hours: My Active Orders 10/04/19 13:47 EKG Documentation Completion [RC] STAT Peripheral IV Insertion Adult [OM.PC] Stat 10/04/19 13:48 Peripheral IV Care [RC] . DIRECTED
== END 2019-10-04 15:48 | disposition home or self-care (01) ==
LOC: DL.ED 13:16
DX: I95.9 Hypotension, unspecified (principal); I10 Essential (primary) hypertension; E78.00 Pure hypercholesterolemia, unspecified; F03.90 Unspecified dementia, unspecified severity, without behavioral disturbance, psychotic disturbance, mood disturbance, and anxiety; Z79.82 Long term (current) use of aspirin; Z79.899 Other long term (current) drug therapy; R06.02 Shortness of breath
CPT/HCPCS: 36415; 71046; 80053; 83880; 84484; 85025; 93005; 99283; 99285-25

== ENCOUNTER 2019-11-30 10:05 | Emergency (ER) | payer MEDICARE, BC ==
[2019-11-30 10:43] VITALS: BP 87/64; PULSE 83
--- NOTE | 2019-11-30 10:58 | EDM.PDOC ---
ED HPI GENERAL MEDICAL PROBLEM - General Chief Complaint: Skin Complaint Stated Complaint: CELLULITIS CREEPING FURTHER UP LEG Time Seen by Provider: 11/30/19 10:57 Source of Information: Reports: Patient, Old Records, RN, RN Notes Reviewed History Limitations: Reports: No Limitations - History of Present Illness INITIAL COMMENTS - FREE TEXT/NARRATIVE: Pt presents to ER with c/o worsening cellulitis to the left lower leg. He fell on Wednesday, bumped left arm and left knee, has fading bruise to the left lower arm and lower left leg is red swollen with a dressing to the knee. He was seen at [facility] yesterday by Edmundo Maradiaga NP, diagnosed with cellulitis, received an antibiotic injection, and prescribed Augmenting. He denies fever or chill. Onset: Gradual Duration: Constant, Getting Worse Location: Reports: Lower Extremity, Left Quality: Reports: Ache Severity: Moderate Improves with: Reports: None Worsens with: Reports: Movement Associated Symptoms: Reports: No Other Symptoms - Related Data Allergies Allergy/AdvReac Type Severity Reaction Status Date / Time No Known Allergies Allergy Verified 11/30/19 10:43 Home Meds: Home Meds Simvastatin [Zocor] 80 mg PO DAILY 05/09/13 [History] Spironolactone [Aldactone] 100 mg PO DAILY 05/09/13 [History] carvediloL [Carvedilol] 25 mg PO BID 05/09/13 [History] lisinopriL [Prinivil] 40 mg PO DAILY 05/09/13 [History] Aspirin [Halfprin] 81 mg PO BRK 11/12/16 [History] Sertraline HCl 25 mg PO DAILY 11/20/17 [History] Warfarin Sodium [Jantoven] 5 mg PO ASDIRECTED 11/20/17 [History] NIFEdipine [Afeditab Cr] 60 mg PO DAILY 07/20/18 [History] Nitroglycerin [Nitrostat] 1 tab PO .5MINUTES PRN MDD three doses 07/20/18 [History] Past Medical History HEENT History: Reports: Impaired Vision Other HEENT History: wears corrective lenses 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, High Cholesterol, Hypertension, Stents Respiratory History: Reports: Bronchitis, Recurrent, Pneumonia, Recurrent Gastrointestinal History: Reports: None Genitourinary History: Reports: UTI, Recurrent Musculoskeletal History: Reports: None Neurological History: Reports: None Psychiatric History: Reports: Dementia Endocrine/Metabolic History: Reports: None Hematologic History: Reports: None Immunologic History: Reports: None Oncologic (Cancer) History: Reports: Other (See Below) 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" Dermatologic History: Reports: Cellulitis - Infectious Disease History Infectious Disease History: Reports: None - Past Surgical History Head Surgeries/Procedures: Reports: None HEENT Surgical History: Reports: None Social & Family History - Family History Family Medical History: Noncontributory - Tobacco Use Smoking Status *Q: Never Smoker Second Hand Smoke Exposure: No - Caffeine Use Caffeine Use: Reports: None - Recreational Drug Use Recreational Drug Use: No - Living Situation & Occupation Occupation: Retired ED ROS GENERAL - Review of Systems Review Of Systems: Comprehensive ROS is negative, except as noted in HPI. ED EXAM, SKIN/RASH Exam: See Below Exam Limited By: No Limitations General Appearance: Alert, No Apparent Distress, Obese Head: Atraumatic, Normocephalic Respiratory/Chest: No Respiratory Distress Cardiovascular: Regular Rate, Rhythm Extremities: Normal Range of Motion, Pedal Edema (Chronic/stable per pt.), Increased Warmth, Redness, Other (Left lower leg with increased warmth and erythema from ankle to knee anterior/medially/laterally with a resolving bruise on the calf.). No: Joint Swelling, Darleen's Sign Neurological: Alert, Oriented, No Motor/Sensory Deficits Psychiatric: Normal Mood Skin: Warm, Dry, Wound/Incision (Abrasion to left anterior knee, no drainage.) Course - Vital Signs Last Recorded V/S: Last Vital Signs Temp 97.1 F 11/30/19 10:29 Pulse 83 11/30/19 10:29 Resp 18 11/30/19 10:29 BP 87/64 L 11/30/19 10:29 Pulse Ox 94 L 11/30/19 10:29 - Orders/Labs/Meds Orders: Active Orders 24 hr Category Date Time Status Peripheral IV Care [RC] . DIRECTED Care 11/30/19 11:03 Active CULTURE BLOOD [BC] Stat Lab 11/30/19 11:13 Received CULTURE BLOOD [BC] Stat Lab 11/30/19 11:23 Received Sodium Chloride 0.9% [Saline Flush] Med 11/30/19 11:03 Active 10 ml FLUSH ASDIRECTED PRN VANCOmycin/Water for INJ (PEG) [VANCOmycin 1.5 GM/300 Med 11/30/19 12:15 Active ML Premix] 1.5 gm Premix Bag 1 bag IV ONETIME Blood Culture x2 Reflex Set [OM.PC] Stat Oth 11/30/19 11:02 Ordered Peripheral IV Insertion Adult [OM.PC] Stat Oth 11/30/19 11:03 Ordered Medication Orders Vancomycin HCl 1.5 gm/ Premix 300 mls @ 200 mls/hr IV ONETIME ONE Stop: 11/30/19 13:44 Last Admin: 11/30/19 12:19 Dose: 200 mls/hr Documented by: ADORE Sodium Chloride (Saline Flush) 10 ml FLUSH ASDIRECTED PRN PRN Reason: Keep Vein Open Last Admin: 11/30/19 12:16 Dose: 10 ml Documented by: Admin: 11/30/19 11:16 Dose: 10 ml Documented by: ADORE Labs: Laboratory Tests 11/30/19 11/30/19 11/30/19 Range/Units 11:23 11:23 11:23 WBC 7.9 (5.0-10.0) 10^3/uL RBC 4.28 L (4.6-6.2) 10^6/uL Hgb 12.6 L D (14.0-18.0) g/dL Hct 39.2 L (40.0-54.0) % MCV 91.6 (80-100) fL MCH 29.4 (27.0-34.0) pg MCHC 32.1 L (33.0-35.0) g/dL Plt Count 232 (150-450) 10^3/uL Neut % (Auto) 69.3 (42.2-75.2) % Lymph % (Auto) 17.5 L (20.5-50.1) % [place] % (Auto) 10.7 H (2-8) % Eos % (Auto) 2.2 (1.0-3.0) % Baso % (Auto) 0.3 (0.0-1.0) % PT 23.7 H (9.0-12.0) SEC INR 2.5 H (0.9-1.2) Sodium 138 (136-145) mmol/L Potassium 5.3 H (3.5-5.1) mmol/L Chloride 103 (98-107) mmol/L Carbon Dioxide 28 (21-32) mmol/L Anion Gap 12.3 (7-13) mEq/L BUN 44 H (7-18) mg/dL Creatinine 2.05 H (0.70-1.30) mg/dL Est Cr Clr Drug Dosing 33.67 mL/min Estimated GFR (MDRD) 32 BUN/Creatinine Ratio 21.5 (No establ ref range) Glucose 101 H (74-99) mg/dL Lactic Acid (0.4-2.0) mmol/L Calcium 8.5 (8.5-10.1) mg/dL Total Bilirubin 0.6 (0.2-1.0) mg/dL AST 23 (15-37) U/L ALT 34 (16-63) U/L Alkaline Phosphatase 106 (46-116) U/L C-Reactive Protein 12.5 H (0.0-0.9) mg/dL Total Protein 7.2 (6.4-8.2) g/dL Albumin 2.9 L (3.4-5.0) g/dL Globulin 4.3 Albumin/Globulin Ratio 0.67 09/03/20 Range/Units 11:23 WBC (5.0-10.0) 10^3/uL RBC (4.6-6.2) 10^6/uL Hgb (14.0-18.0) g/dL Hct (40.0-54.0) % MCV (80-100) fL MCH (27.0-34.0) pg MCHC (33.0-35.0) g/dL Plt Count (150-450) 10^3/uL Neut % (Auto) (42.2-75.2) % Lymph % (Auto) (20.5-50.1) % [place] % (Auto) (2-8) % Eos % (Auto) (1.0-3.0) % Baso % (Auto) (0.0-1.0) % PT (9.0-12.0) SEC INR (0.9-1.2) Sodium (136-145) mmol/L Potassium (3.5-5.1) mmol/L Chloride (98-107) mmol/L Carbon Dioxide (21-32) mmol/L Anion Gap (7-13) mEq/L BUN (7-18) mg/dL Creatinine (0.70-1.30) mg/dL Est Cr Clr Drug Dosing mL/min Estimated GFR (MDRD) BUN/Creatinine Ratio (No establ ref range) Glucose (74-99) mg/dL Lactic Acid 0.8 (0.4-2.0) mmol/L Calcium (8.5-10.1) mg/dL Total Bilirubin (0.2-1.0) mg/dL AST (15-37) U/L ALT (16-63) U/L Alkaline Phosphatase (46-116) U/L C-Reactive Protein (0.0-0.9) mg/dL Total Protein (6.4-8.2) g/dL Albumin (3.4-5.0) g/dL Globulin Albumin/Globulin Ratio Meds: Medications Generic Name Dose Route Start Last Admin Trade Name Freq PRN Reason Stop Dose Admin Vancomycin HCl 1.5 gm/ Premix 300 mls @ 200 mls/hr 11/30/19 12:15 11/30/19 12:19 IV 11/30/19 13:44 200 mls/hr ONETIME ONE Administration Sodium Chloride 10 ml 11/30/19 11:03 11/30/19 12:16 Saline Flush FLUSH 10 ml ASDIRECTED PRN Administration Keep Vein Open Discontinued Medications Generic Name Dose Route Start Last Admin Trade Name Freq PRN Reason Stop Dose Admin Diphenhydramine HCl 25 mg 11/30/19 11:52 11/30/19 12:15 Benadryl IVPUSH 11/30/19 11:53 25 mg ONETIME ONE Administration Vancomycin HCl 1 dose 11/30/19 11:51 Pharmacy To Dose - Vancomycin .XX 11/30/19 11:52 ONETIME ONE Departure - Departure Time of Disposition: 13:02 Disposition: Home, Self-Care 01 Condition: Good Clinical Impression: Cellulitis of left lower leg, Abrasion, left knee, initial encounter - Discharge Information *PRESCRIPTION DRUG MONITORING PROGRAM REVIEWED*: Not Applicable *COPY OF PRESCRIPTION DRUG MONITORING REPORT IN PATIENT [place]: Not Applicable Instructions: Cellulitis, Adult, Abrasion Forms: ED Department Discharge Additional Instructions: Rx: Clindamycin 300mg Rx: Bactroban Ointment 2% Continue Augmentin as previously prescribed. Elevate the left leg as much as possible. Follow up in clinic Wednesday or Wednesday for recheck. Sepsis Event Note (ED) - Evaluation Sepsis Screening Result: No Definite Risk - Focused Exam Vital Signs: Vital Signs Temp Pulse Resp BP Pulse Ox 11/30/19 10:29 97.1 F 83 18 87/64 L 94 L - My Orders Last 24 Hours: My Active Orders 11/30/19 11:02 Blood Culture x2 Reflex Set [OM.PC] Stat 11/30/19 11:03 Peripheral IV Care [RC] . DIRECTED Sodium Chloride 0.9% [Saline Flush] 10 ml FLUSH ASDIRECTED PRN Peripheral IV Insertion Adult [OM.PC] Stat 11/30/19 11:13 CULTURE BLOOD [BC] Stat 11/30/19 11:23 CULTURE BLOOD [BC] Stat 11/30/19 12:15 VANCOmycin/Water for INJ (PEG) [VANCOmycin 1.5 GM/300 ML Premix] 1.5 gm Premix Bag 1 bag IV ONETIME - Assessment/Plan Last 24 Hours: My Active Orders 11/30/19 11:02 Blood Culture x2 Reflex Set [OM.PC] Stat 11/30/19 11:03 Peripheral IV Care [RC] . DIRECTED Sodium Chloride 0.9% [Saline Flush] 10 ml FLUSH ASDIRECTED PRN Peripheral IV Insertion Adult [OM.PC] Stat 11/30/19 11:13 CULTURE BLOOD [BC] Stat 11/30/19 11:23 CULTURE BLOOD [BC] Stat 11/30/19 12:15 VANCOmycin/Water for INJ (PEG) [VANCOmycin 1.5 GM/300 ML Premix] 1.5 gm Premix Bag 1 bag IV ONETIME
[2019-11-30] MEDS: Sodium Chloride 0.9% 10 ML Syringe FLUSH PRN ×2 (11:16→12:16)
[2019-11-30] MEDS ORDERED: diphenhydrAMINE 50 MG/ML SDV IVPUSH ONE (11:52)
[2019-11-30 12:00] LABS: ANION GAP 12.3 mEq/L (7-13)
== END 2019-11-30 13:52 | disposition home or self-care (01) ==
LOC: DL.ED 10:05
DX: S80.212A Abrasion, left knee, initial encounter (principal); L03.116 Cellulitis of left lower limb; E78.00 Pure hypercholesterolemia, unspecified; I10 Essential (primary) hypertension; F03.90 Unspecified dementia, unspecified severity, without behavioral disturbance, psychotic disturbance, mood disturbance, and anxiety; W19.XXXA Unspecified fall, initial encounter
CPT/HCPCS: 36415; 80053; 83605; 85025; 85610; 86140; 87040; 96365; 96375; 99283; J1200; J3370

== ENCOUNTER 2020-05-28 08:06 | Emergency (ER) | payer MEDICARE, BC ==
[2020-05-28 08:15] VITALS: BP 154/94; PULSE 93
--- NOTE | 2020-05-28 08:21 | EDM.PDOCBH ---
ED HPI GENERAL MEDICAL PROBLEM - General Chief Complaint: Behavioral/Psych Stated Complaint: HALLUCINATIONS Time Seen by Provider: 05/28/20 08:19 Source of Information: Reports: Patient, Family (), Old Records, RN, RN Notes Reviewed History Limitations: Reports: No Limitations - History of Present Illness INITIAL COMMENTS - FREE TEXT/NARRATIVE: Pt presents to ER from home by POV accompanied by his , with c/o hallucinations for the past 3 days. The hallucinations are auditory and visual and look completely real to him, but he knows that they must be hallucinations because they don't make sense. The hallucinations only happen when he is either fatigued and/or as he is falling asleep or just waking. Then he "clears" and become reorientated. He denies having any hallucinations while awake. Pt states he fell 2 weeks ago and hurt his left foot. He was prescribed Tramadol, but has taken it in the past without any side effects. Denies any head injury, headaches, visual changes or blurriness, difficulty with speech or swallowing, motor weakness, or numbness/tingling. Review of pt's old records reveals past diagnosis of dementia, but pt and his state that they do not recall being told that he has dementia. Onset: Unknown/Unsure Onset Date: 05/25/20 Duration: Intermittent, Recurring Severity: Severe Improves with: Reports: None Worsens with: Reports: Rest (sleep) Associated Symptoms: Reports: Confusion Left Foot Pain Score (Numeric/FACES): 10 - Related Data Allergies Allergy/AdvReac Type Severity Reaction Status Date / Time No Known Allergies Allergy Verified 05/28/20 08:16 Home Meds: Home Meds Simvastatin [Zocor] 80 mg PO DAILY 05/09/13 [History] Spironolactone [Aldactone] 100 mg PO DAILY 05/09/13 [History] carvediloL [Carvedilol] 25 mg PO BID 05/09/13 [History] lisinopriL [Prinivil] 40 mg PO DAILY 05/09/13 [History] Aspirin [Halfprin] 81 mg PO BRK 11/12/16 [History] Sertraline HCl 25 mg PO DAILY 11/20/17 [History] Warfarin Sodium [Jantoven] 5 mg PO ASDIRECTED 11/20/17 [History] NIFEdipine [Afeditab Cr] 60 mg PO DAILY 07/20/18 [History] Nitroglycerin [Nitrostat] 1 tab PO .5MINUTES PRN MDD three doses 07/20/18 [History] traMADol [Ultram] 50 mg PO Q6H PRN 05/28/20 [History] Past Medical History HEENT History: Reports: Impaired Vision Other HEENT History: wears corrective lenses 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, High Cholesterol, Hypertension, Stents Respiratory History: Reports: Bronchitis, Recurrent, Pneumonia, Recurrent Gastrointestinal History: Reports: None Genitourinary History: Reports: UTI, Recurrent Musculoskeletal History: Reports: None Neurological History: Reports: None Psychiatric History: Reports: Anxiety, Dementia Endocrine/Metabolic History: Reports: None Hematologic History: Reports: None Immunologic History: Reports: None Oncologic (Cancer) History: Reports: Other (See Below) 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 ED EXAM, BEHAVIORAL HEALTH - Physical Exam Exam: See Below Exam Limited By: No Limitations General Appearance: Alert, No Apparent Distress, Anxious, Obese Eye Exam: Bilateral Eye: EOMI, Normal Inspection, PERRL Ears: Normal External Exam, Hearing Grossly Normal Nose: Normal Inspection, Normal Mucosa, No Blood Throat/Mouth: Normal Inspection, Normal Lips, Normal Teeth, Normal Gums, Normal Oropharynx, Normal Voice, No Airway Compromise Head: Atraumatic, Normocephalic Neck: Normal Inspection, Supple, Non-Tender, Full Range of Motion Respiratory/Chest: No Respiratory Distress, Lungs Clear, Normal Breath Sounds, No Accessory Muscle Use, Chest Non-Tender Cardiovascular: Normal Peripheral Pulses, Regular Rate, Rhythm, No Edema, No JVD GI/Abdominal: Normal Bowel Sounds, Soft, Non-Tender, No Organomegaly, No Distention, No Abnormal Bruit, No Mass Back Exam: Normal Inspection Extremities: Normal Range of Motion, Normal Capillary Refill, Other (Left foot has significant soft tissue swelling with mild erythema and slight increased warmth) Neurological: Alert, CN II-XII Intact, No Motor/Sensory Deficits Psychiatric: Alert, Oriented, Depressed Mood, Flat Affect, Restless (Impatient, frustrated that he has to wait for lab results.), Auditory Hallucinations, Visual Hallucinations Skin Exam: Warm, Dry, Intact, No rash, Other (Chronic venous stasis changes to B/L lower legs.) COURSE, BEHAVIORAL HEALTH COMP - Course Vital Signs: Last Vital Signs Temp 97.3 F 05/28/20 08:15 Pulse 93 05/28/20 08:15 Resp 16 05/28/20 08:15 BP 154/94 H 05/28/20 08:15 Pulse Ox 94 L 05/28/20 08:15 Orders, Labs, Meds: Laboratory Tests 05/28/20 05/28/20 05/28/20 Range/Units 09:20 09:20 09:21 WBC 6.5 (5.0-10.0) 10^3/uL RBC 4.89 (4.6-6.2) 10^6/uL Hgb 13.9 L (14.0-18.0) g/dL Hct 44.1 (40.0-54.0) % MCV 90.2 (80-100) fL MCH 28.4 (27.0-34.0) pg MCHC 31.5 L (33.0-35.0) g/dL Plt Count 215 (150-450) 10^3/uL Neut % (Auto) 70.2 (42.2-75.2) % Lymph % (Auto) 18.1 L (20.5-50.1) % [place] % (Auto) 10.0 H (2-8) % Eos % (Auto) 1.4 (1.0-3.0) % Baso % (Auto) 0.3 (0.0-1.0) % Sodium (136-145) mmol/L Potassium (3.5-5.1) mmol/L Chloride (98-107) mmol/L Carbon Dioxide (21-32) mmol/L Anion Gap (7-13) mEq/L BUN (7-18) mg/dL Creatinine (0.70-1.30) mg/dL Est Cr Clr Drug Dosing mL/min Estimated GFR (MDRD) BUN/Creatinine Ratio (No establ ref range) Glucose (74-99) mg/dL Calcium (8.5-10.1) mg/dL Magnesium (1.8-2.4) mg/dL Total Bilirubin (0.2-1.0) mg/dL AST (15-37) U/L ALT (16-63) U/L Alkaline Phosphatase (46-116) U/L C-Reactive Protein (0.0-0.9) mg/dL Total Protein (6.4-8.2) g/dL Albumin (3.4-5.0) g/dL Globulin Albumin/Globulin Ratio Vitamin B12 (193-986) pg/mL TSH, Ultra Sensitive (0.36-3.74) uIU/mL Urine Color Yellow (YELLOW) Urine Appearance Clear (CLEAR) Urine pH 6.0 (5.0-9.0) Ur Specific [place] >= 1.030 (1.005-1.030) Urine Protein Trace H (NEGATIVE) Urine Glucose (UA) Negative (NEGATIVE) Urine Ketones Negative (NEGATIVE) Urine Occult Blood Trace-intact H (NEGATIVE) Urine Nitrite Negative (NEGATIVE) Urine Bilirubin Negative (NEGATIVE) Urine Urobilinogen 0.2 (0.2-1.0) mg/dL Ur Leukocyte Esterase Negative (NEGATIVE) U Hyaline Cast (Auto) Few Urine RBC 0-5 /HPF Urine WBC 0-5 (0-5/HPF) /HPF Ur Epithelial Cells Few (NOT SEEN) /HPF Fine Granular Casts Rare H (NOT SEEN) /LPF Urine Mucus Moderate H (NOT SEEN) /LPF Urine Opiates Screen Negative (NEGATIVE) Ur Oxycodone Screen Negative (NEGATIVE) Urine Methadone Screen Negative (NEGATIVE) Ur Barbiturates Screen Negative (NEGATIVE) U Tricyclic Antidepress Positive H (NEGATIVE) Ur Phencyclidine Scrn Negative (NEGATIVE) Ur Amphetamine Screen Negative (NEGATIVE) U Methamphetamines Scrn Negative (NEGATIVE) Urine MDMA Screen Negative (NEGATIVE) U Benzodiazepines Scrn Negative (NEGATIVE) Urine Cocaine Screen Negative (NEGATIVE) U Marijuana (THC) Screen Negative (NEGATIVE) Ethyl Alcohol (0) mg/dL 05/28/20 Range/Units 09:21 WBC (5.0-10.0) 10^3/uL RBC (4.6-6.2) 10^6/uL Hgb (14.0-18.0) g/dL Hct (40.0-54.0) % MCV (80-100) fL MCH (27.0-34.0) pg MCHC (33.0-35.0) g/dL Plt Count (150-450) 10^3/uL Neut % (Auto) (42.2-75.2) % Lymph % (Auto) (20.5-50.1) % [place] % (Auto) (2-8) % Eos % (Auto) (1.0-3.0) % Baso % (Auto) (0.0-1.0) % Sodium 141 (136-145) mmol/L Potassium 4.0 (3.5-5.1) mmol/L Chloride 102 (98-107) mmol/L Carbon Dioxide 32 (21-32) mmol/L Anion Gap 11.0 (7-13) mEq/L BUN 29 H (7-18) mg/dL Creatinine 1.32 H (0.70-1.30) mg/dL Est Cr Clr Drug Dosing 51.50 mL/min Estimated GFR (MDRD) 53 BUN/Creatinine Ratio 22.0 (No establ ref range) Glucose 105 H (74-99) mg/dL Calcium 8.9 (8.5-10.1) mg/dL Magnesium 1.9 (1.8-2.4) mg/dL Total Bilirubin 0.5 (0.2-1.0) mg/dL AST 18 (15-37) U/L ALT 33 (16-63) U/L Alkaline Phosphatase 105 (46-116) U/L C-Reactive Protein 17.1 H (0.0-0.9) mg/dL Total Protein 7.7 (6.4-8.2) g/dL Albumin 2.9 L (3.4-5.0) g/dL Globulin 4.8 Albumin/Globulin Ratio 0.60 Vitamin B12 546 (193-986) pg/mL TSH, Ultra Sensitive 1.44 (0.36-3.74) uIU/mL Urine Color (YELLOW) Urine Appearance (CLEAR) Urine pH (5.0-9.0) Ur Specific [place] (1.005-1.030) Urine Protein (NEGATIVE) Urine Glucose (UA) (NEGATIVE) Urine Ketones (NEGATIVE) Urine Occult Blood (NEGATIVE) Urine Nitrite (NEGATIVE) Urine Bilirubin (NEGATIVE) Urine Urobilinogen (0.2-1.0) mg/dL Ur Leukocyte Esterase (NEGATIVE) U Hyaline Cast (Auto) Urine RBC /HPF Urine WBC (0-5/HPF) /HPF Ur Epithelial Cells (NOT SEEN) /HPF Fine Granular Casts (NOT SEEN) /LPF Urine Mucus (NOT SEEN) /LPF Urine Opiates Screen (NEGATIVE) Ur Oxycodone Screen (NEGATIVE) Urine Methadone Screen (NEGATIVE) Ur Barbiturates Screen (NEGATIVE) U Tricyclic Antidepress (NEGATIVE) Ur Phencyclidine Scrn (NEGATIVE) Ur Amphetamine Screen (NEGATIVE) U Methamphetamines Scrn (NEGATIVE) Urine MDMA Screen (NEGATIVE) U Benzodiazepines Scrn (NEGATIVE) Urine Cocaine Screen (NEGATIVE) U Marijuana (THC) Screen (NEGATIVE) Ethyl Alcohol < 3 (0) mg/dL Re-Assessment/Re-Exam: [facility] [place] [facility] Final Radiology Report Call: [phone] assistance Online chat: [email or web address] Name: RUBIN PAIGE Age: 75Years M Date: 05/28/2020 SSN: -- : [id number] Study: CT HEAD WO CONT Requesting Physician: JOSELINE NORWOOD Images: [id number] Addl Studies: Provided Clinical History: Acute altered mental status w/hallucinations Contrast: Without Contrast Medium: Contrast Amount: Contrast Method: Page 1 of 2 PROCEDURE INFORMATION: Exam: CT Head Without Contrast Exam date and time: 05/28/2020 9:30 AM Age: 75 years old Clinical indication: Altered mental status/memory loss; Confusion or disorientation; Additional info: Acute altered mental status w/hallucinations TECHNIQUE: Imaging protocol: Computed tomography of the head without contrast. Radiation optimization: All CT scans at this facility use at least one of these dose optimization techniques: automated exposure control; mA and/or kV adjustment per patient size (includes targeted exams where dose is matched to clinical indication); or iterative reconstruction. Other technique: STROKE PROTOCOL was implemented. COMPARISON: No relevant prior studies available. FINDINGS: Brain: There is an expected degree of age-related atrophy and chronic white matter ischemic changes. Multiple small hypodensities at the basal ganglia consistent with remote lacunar infarctions. No acute intra-axial or extra-axial hemorrhage appreciated. [place] Stroke Program Early CT Score (ASPECTS) = 10. Cerebral ventricles: No ventriculomegaly. Bones/joints: Unremarkable. No acute fracture. Paranasal sinuses: Retention cysts versus polyps within the left maxillary sinus. There is aerosolized mucous with the sphenoid sinus consistent with an acute component. Mastoid air cells: Visualized mastoid air cells are well aerated. Vasculature: The distal vertebral arteries visualized and cavernous portions of the carotid arteries show atherosclerotic disease. Soft tissues: Unremarkable. RUBIN PAIGE | Final Radiology Report CONFIDENTIALITY STATEMENT This report is intended only for use by the referring physician, and only in accordance with law. If you received this in error, call [phone]. Page 2 of 2 Other findings: Left frontal enostosis. IMPRESSION: 1. There is an expected degree of age-related atrophy and chronic white matter ischemic changes. 2. Multiple small hypodensities at the basal ganglia consistent with remote lacunar infarctions. 3. No acute intra-axial or extra-axial hemorrhage appreciated. 4. [place] Stroke Program Early CT Score (ASPECTS) = 10. COMMENTS: If the symptoms that lead to this examination persist or worsen, or there is concern for CVA (which may not manifeston CT for the first 24-48 hours), close interval follow-up MRI (or followup CT if the patient cannot undergo MRI evaluation) could provide additional information; only if clinically indicated. Thank you for allowing us to participate in the care of your patient. Dictated and Authenticated by: Mirza Villavicencio MD 05/28/2020 9:38 AM Central Time ([place] & [place]) Discharge vs Psych Eval/Treatment:: 05/28/20 09:58 I contacted the pt's PCP, Gely Bright NP. Gely will see the in f/u on , 05/30/20 at 8:00AM for further evaluation and referral to neuro-psychology. Departure - Departure Time of Disposition: 10:20 Disposition: Home, Self-Care 01 Condition: Fair Clinical Impression: Hallucinations, Cellulitis of left foot - Discharge Information *PRESCRIPTION DRUG MONITORING PROGRAM REVIEWED*: No *COPY OF PRESCRIPTION DRUG MONITORING REPORT IN PATIENT [place]: No Instructions: Psychosis, Lacunar Stroke, Cellulitis, Adult Forms: ED Department Discharge Additional Instructions: Rx: Cephalexin 500mg (for left foot). Discontinue Tramadol. Do not take any medications which may cause drowsiness or otherwise be mind altering. Follow with Gely Bright at 8:00AM on , 05/30/20 for further evaluation and referral to a neurological specialist. Sepsis Event Note (ED) - Evaluation Sepsis Screening Result: No Definite Risk - Focused Exam Vital Signs: Vital Signs Temp Pulse Resp BP Pulse Ox 05/28/20 08:15 97.3 F 93 16 154/94 H 94 L
--- NOTE | 2020-05-28 09:39 | CT ---
PROCEDURE INFORMATION: Exam: CT Head Without Contrast Exam date and time: 05/28/2020 9:30 AM Age: 75 years old Clinical indication: Altered mental status/memory loss; Confusion or disorientation; Additional info: Acute altered mental status w/hallucinations TECHNIQUE: Imaging protocol: Computed tomography of the head without contrast. Radiation optimization: All CT scans at this facility use at least one of these dose optimization techniques: automated exposure control; mA and/or kV adjustment per patient size (includes targeted exams where dose is matched to clinical indication); or iterative reconstruction. Other technique: STROKE PROTOCOL was implemented. COMPARISON: No relevant prior studies available. FINDINGS: Brain: There is an expected degree of age-related atrophy and chronic white matter ischemic changes. Multiple small hypodensities at the basal ganglia consistent with remote lacunar infarctions. No acute intra-axial or extra-axial hemorrhage appreciated. [place] Stroke Program Early CT Score (ASPECTS) = 10. Cerebral ventricles: No ventriculomegaly. Bones/joints: Unremarkable. No acute fracture. Paranasal sinuses: Retention cysts versus polyps within the left maxillary sinus. There is aerosolized mucous with the sphenoid sinus consistent with an acute component. Mastoid air cells: Visualized mastoid air cells are well aerated. Vasculature: The distal vertebral arteries visualized and cavernous portions of the carotid arteries show atherosclerotic disease. Soft tissues: Unremarkable. Other findings: Left frontal enostosis. IMPRESSION: 1. There is an expected degree of age-related atrophy and chronic white matter ischemic changes. 2. Multiple small hypodensities at the basal ganglia consistent with remote lacunar infarctions. 3. No acute intra-axial or extra-axial hemorrhage appreciated. 4. [place] Stroke Program Early CT Score (ASPECTS) = 10. COMMENTS: If the symptoms that lead to this examination persist or worsen, or there is concern for CVA (which may not manifeston CT for the first 24-48 hours), close interval follow-up MRI (or followup CT if the patient cannot undergo MRI evaluation) could provide additional information; only if clinically indicated.
[2020-05-28 10:10] LABS: CHLORIDE,CL 102 mmol/L (98-107); SODIUM,NA 141 mmol/L (136-145)
== END 2020-05-28 10:50 | disposition home or self-care (01) ==
LOC: DL.ED 08:06
DX: R44.1 Visual hallucinations (principal); R44.0 Auditory hallucinations; L03.116 Cellulitis of left lower limb; E78.00 Pure hypercholesterolemia, unspecified; I10 Essential (primary) hypertension; F03.90 Unspecified dementia, unspecified severity, without behavioral disturbance, psychotic disturbance, mood disturbance, and anxiety; Z86.718 Personal history of other venous thrombosis and embolism; Z79.82 Long term (current) use of aspirin; Z79.899 Other long term (current) drug therapy
CPT/HCPCS: 36415; 70450; 80053; 80305-QW; 80307; 81001; 82607; 83735; 84443; 85025; 86140; 99285-25